=== PATIENT | female | born 1950 | race Hispanic/Latino ===

== ENCOUNTER → 2017-08-25 | Outpatient (CLI) | payer MEDICARE ==
[~2017-08-25] MED LIST: ALEN70TA2 PO; ASPI-1197 PO; ATOR10 PO; BACL20TA PO; CATOPRIL PO; CHOL100046 PO; ERGO400T7 PO; FENO43CA5 PO; FLUO10CA21 PO; HYDR-4064 PO; IMDUR ER PO; INSU100C6 SQ; INSU100V12 SQ; LEVO100T6 PO; METO-296 PO; METO50TA9 PO; PREG150C PO; ROPI1TAB38 PO
== END | disposition home or self-care (01) ==
LOC: RAH 09:53
PROVIDERS: ATTEND Internal Medicine
DX: Z12.31 Encounter for screening mammogram for malignant neoplasm of breast (principal)
CPT/HCPCS: 77067

== ENCOUNTER → 2017-11-25 | Outpatient (CLI) | payer MEDICARE | END | disposition home or self-care (01) | LOC: RAH 08:42 | PROVIDERS: ATTEND Neurological Surgery | DX: M48.061 Spinal stenosis, lumbar region without neurogenic claudication (principal); M48.04 Spinal stenosis, thoracic region; M54.16 Radiculopathy, lumbar region; M54.14 Radiculopathy, thoracic region; M21.372 Foot drop, left foot; M25.78 Osteophyte, vertebrae; N28.1 Cyst of kidney, acquired; R53.1 Weakness | CPT/HCPCS: 72146; 72148 ==

== ENCOUNTER → 2018-04-06 | Outpatient (CLI) | payer MEDICARE | END | disposition home or self-care (01) | LOC: RAH 13:59 | PROVIDERS: ATTEND Neurological Surgery | DX: M54.12 Radiculopathy, cervical region (principal) | CPT/HCPCS: 72040 ==

== ENCOUNTER 2018-04-22 23:05 | Emergency (ER) | payer MEDICARE ==
[2018-04-22 23:29] LABS: BASOPHILS % (AUTO) 2.7 % (0.0-5.0); EOSINOPHILS % (AUTO) 2.7 % (0.0-8.0); HEMATOCRIT 36.4 % (36-48); LYMPHOCYTES % (AUTO) 25.2 % (21.0-51.0); MEAN CORPUSCULAR HEMOGLOBIN 28.4 pg (27.0-33.0); MEAN CORPUSCULAR HGB CONC 33.4 g/dL (32.0-36.0); MONOCYTES % (AUTO) 7.5 % (3.0-13.0); NEUTROPHILS % (AUTO) 61.9 % (40.0-77.0); PLATELET COUNT (AUTO) 264 K/uL (130-400); RED BLOOD CELL COUNT(AUTO) 4.28 MIL/uL (4.00-5.50); RED CELL DISTRIBUTION WIDTH 13.9 % (11.0-15.5); WHITE BLOOD COUNT (AUTO) 8.5 K/uL (4.8-10.8)
[2018-04-22 23:39] LABS: CREATININE 0.9 mg/dL (0.5-1.5)
[2018-04-22 23:44] LABS: ALBUMIN 3.2 g/dL (3.5-5.0); BILIRUBIN,TOTAL 0.7 mg/dL (0.2-1.0); TOTAL PROTEIN, SERUM 6.9 g/dL (6.0-8.3)
[2018-04-22] MEDS ORDERED: LIDOCAINE 5% TOPICAL PATCH TP ONE (23:45)
== END 2018-04-23 00:41 | disposition home or self-care (01) ==
LOC: EDH 23:05
DX: M25.571 Pain in right ankle and joints of right foot (principal); E11.9 Type 2 diabetes mellitus without complications; E07.9 Disorder of thyroid, unspecified; I25.10 Atherosclerotic heart disease of native coronary artery without angina pectoris; Z95.1 Presence of aortocoronary bypass graft; Z79.4 Long term (current) use of insulin
CPT/HCPCS: 36415; 73600; 80053; 85025

== ENCOUNTER → 2018-12-07 | Outpatient (CLI) | payer MEDICARE | END | disposition home or self-care (01) | LOC: RAH 09:40 | PROVIDERS: ATTEND Physical Medicine & Rehabilitation | DX: M47.812 Spondylosis without myelopathy or radiculopathy, cervical region (principal); M85.88 Other specified disorders of bone density and structure, other site; M43.22 Fusion of spine, cervical region | CPT/HCPCS: 72040 ==

== ENCOUNTER → 2018-12-26 | Outpatient (CLI) | payer MEDICARE | END | disposition home or self-care (01) | LOC: RAH 09:52 | PROVIDERS: ATTEND Internal Medicine | DX: S00.93XA Contusion of unspecified part of head, initial encounter (principal); S00.83XA Contusion of other part of head, initial encounter; T14.90XA Injury, unspecified, initial encounter; M79.89 Other specified soft tissue disorders; W19.XXXA Unspecified fall, initial encounter; Y93.89 Activity, other specified; Y92.89 Other specified places as the place of occurrence of the external cause; Y99.8 Other external cause status | CPT/HCPCS: 70450; 70486 ==

== ENCOUNTER → 2019-01-10 | Outpatient (CLI) | payer MEDICARE ==
[~2019-01-10] MED LIST changes: +LIDOCAINE/PRILOCAINE CREAM 5GM TUBE TP ONE
[2019-01-10 10:11] VITALS: BP 95/61
== END | disposition home or self-care (01) ==
LOC: WHH 08:15
PROVIDERS: ATTEND Family Medicine
DX: E11.622 Type 2 diabetes mellitus with other skin ulcer (principal); L89.322 Pressure ulcer of left buttock, stage 2; L98.412 Non-pressure chronic ulcer of buttock with fat layer exposed; I11.0 Hypertensive heart disease with heart failure; I50.9 Heart failure, unspecified; E03.9 Hypothyroidism, unspecified; E78.5 Hyperlipidemia, unspecified; I25.10 Atherosclerotic heart disease of native coronary artery without angina pectoris; F32.9 Major depressive disorder, single episode, unspecified; E66.9 Obesity, unspecified; Z99.3 Dependence on wheelchair; Z95.1 Presence of aortocoronary bypass graft
CPT/HCPCS: 11042; J3490

== ENCOUNTER → 2019-01-17 | Outpatient (CLI) | payer MEDICARE ==
[~2019-01-17] MED LIST changes: +ATOR40TA71 PO; +DULO30CA52 PO; +DULO60CA64 PO; +LEVO100T12 PO; +LIRA0.6P2 SQ; +LISI2.5T2 PO; +MIRA50TA PO; +RANI150T7 PO; +TRAM50TA4 PO
[2019-01-17 11:37] VITALS: BP 76/45
== END | disposition home or self-care (01) ==
LOC: WHH 08:20
PROVIDERS: ATTEND Surgery
DX: E11.622 Type 2 diabetes mellitus with other skin ulcer (principal); L89.322 Pressure ulcer of left buttock, stage 2; L98.411 Non-pressure chronic ulcer of buttock limited to breakdown of skin; I11.0 Hypertensive heart disease with heart failure; I50.9 Heart failure, unspecified; E03.9 Hypothyroidism, unspecified; E78.5 Hyperlipidemia, unspecified; I25.10 Atherosclerotic heart disease of native coronary artery without angina pectoris; F32.9 Major depressive disorder, single episode, unspecified; E66.9 Obesity, unspecified; M79.89 Other specified soft tissue disorders; M85.88 Other specified disorders of bone density and structure, other site; Z99.3 Dependence on wheelchair; Z95.1 Presence of aortocoronary bypass graft
CPT/HCPCS: G0463; J3490

== ENCOUNTER → 2019-01-24 | Outpatient (CLI) | payer MEDICARE ==
[~2019-01-24] MED LIST changes: -ATOR40TA71 PO; -DULO30CA52 PO; -DULO60CA64 PO; -LEVO100T12 PO; -LIRA0.6P2 SQ; -LISI2.5T2 PO; -MIRA50TA PO; -RANI150T7 PO; -TRAM50TA4 PO
[2019-01-24 11:37] VITALS: BP 92/58
== END | disposition home or self-care (01) ==
LOC: WHH 08:30
PROVIDERS: ATTEND Surgery
DX: E11.622 Type 2 diabetes mellitus with other skin ulcer (principal); L89.322 Pressure ulcer of left buttock, stage 2; L98.411 Non-pressure chronic ulcer of buttock limited to breakdown of skin; I11.0 Hypertensive heart disease with heart failure; I50.9 Heart failure, unspecified; E03.9 Hypothyroidism, unspecified; E78.5 Hyperlipidemia, unspecified; I25.10 Atherosclerotic heart disease of native coronary artery without angina pectoris; F32.9 Major depressive disorder, single episode, unspecified; E66.9 Obesity, unspecified; M79.89 Other specified soft tissue disorders; M85.88 Other specified disorders of bone density and structure, other site; Z99.3 Dependence on wheelchair; Z95.1 Presence of aortocoronary bypass graft
CPT/HCPCS: G0463; J3490

== ENCOUNTER → 2019-03-21 | Outpatient (CLI) | payer MEDICARE ==
[~2019-03-21] MED LIST changes: -ALEN70TA2 PO; -ATOR10 PO; +ATOR40TA71 PO; -CATOPRIL PO; -CHOL100046 PO; +DULO30CA52 PO; +DULO60CA64 PO; -FENO43CA5 PO; -FLUO10CA21 PO; -HYDR-4064 PO; -IMDUR ER PO; +LEVO100T12 PO; -LEVO100T6 PO; +LIRA0.6P2 SQ; +LISI2.5T2 PO; +MIRA50TA PO; +RANI150T7 PO; +TRAM50TA4 PO
[2019-03-21 12:12] VITALS: BP 110/56
== END | disposition home or self-care (01) ==
LOC: WHH 09:00
PROVIDERS: ATTEND Family Medicine
DX: E11.622 Type 2 diabetes mellitus with other skin ulcer (principal); L89.322 Pressure ulcer of left buttock, stage 2; L98.411 Non-pressure chronic ulcer of buttock limited to breakdown of skin; E11.22 Type 2 diabetes mellitus with diabetic chronic kidney disease; I13.0 Hypertensive heart and chronic kidney disease with heart failure and stage 1 through stage 4 chronic kidney disease, or unspecified chronic kidney disease; N18.9 Chronic kidney disease, unspecified; I50.9 Heart failure, unspecified; E11.42 Type 2 diabetes mellitus with diabetic polyneuropathy; I25.10 Atherosclerotic heart disease of native coronary artery without angina pectoris; R32 Unspecified urinary incontinence; R15.9 Full incontinence of feces; E66.01 Morbid (severe) obesity due to excess calories; E03.9 Hypothyroidism, unspecified; G82.20 Paraplegia, unspecified; M79.89 Other specified soft tissue disorders; M85.88 Other specified disorders of bone density and structure, other site; F32.9 Major depressive disorder, single episode, unspecified; Z99.3 Dependence on wheelchair; Z90.79 Acquired absence of other genital organ(s); Z90.721 Acquired absence of ovaries, unilateral; Z95.1 Presence of aortocoronary bypass graft; Z74.01 Bed confinement status
CPT/HCPCS: 11042; J3490

== ENCOUNTER → 2019-03-28 | Outpatient (CLI) | payer MEDICARE ==
[~2019-03-28] MED LIST changes: -LIDOCAINE/PRILOCAINE CREAM 5GM TUBE TP ONE
[2019-03-28 10:43] VITALS: BP 124/75
== END | disposition home or self-care (01) ==
LOC: WHH 08:30
PROVIDERS: ATTEND Family Medicine
DX: E11.622 Type 2 diabetes mellitus with other skin ulcer (principal); L89.152 Pressure ulcer of sacral region, stage 2; L98.421 Non-pressure chronic ulcer of back limited to breakdown of skin; L89.329 Pressure ulcer of left buttock, unspecified stage; L98.412 Non-pressure chronic ulcer of buttock with fat layer exposed; G82.20 Paraplegia, unspecified; E11.22 Type 2 diabetes mellitus with diabetic chronic kidney disease; I13.0 Hypertensive heart and chronic kidney disease with heart failure and stage 1 through stage 4 chronic kidney disease, or unspecified chronic kidney disease; N18.9 Chronic kidney disease, unspecified; I50.9 Heart failure, unspecified; E11.42 Type 2 diabetes mellitus with diabetic polyneuropathy; I25.10 Atherosclerotic heart disease of native coronary artery without angina pectoris; R15.9 Full incontinence of feces; R32 Unspecified urinary incontinence; E03.9 Hypothyroidism, unspecified; E66.01 Morbid (severe) obesity due to excess calories; M85.9 Disorder of bone density and structure, unspecified; F32.9 Major depressive disorder, single episode, unspecified; Z79.4 Long term (current) use of insulin; Z90.721 Acquired absence of ovaries, unilateral; Z99.3 Dependence on wheelchair; Z95.1 Presence of aortocoronary bypass graft; Z74.01 Bed confinement status
CPT/HCPCS: 11042

== ENCOUNTER → 2019-04-11 | Outpatient (CLI) | payer MEDICARE ==
[~2019-04-11] MED LIST changes: +LIDOCAINE/PRILOCAINE CREAM 5GM TUBE TP ONE
[2019-04-11 12:11] VITALS: BP 117/64
== END | disposition home or self-care (01) ==
LOC: WHH 08:30
PROVIDERS: ATTEND Family Medicine
DX: E11.622 Type 2 diabetes mellitus with other skin ulcer (principal); L89.312 Pressure ulcer of right buttock, stage 2; L98.411 Non-pressure chronic ulcer of buttock limited to breakdown of skin; G82.20 Paraplegia, unspecified; E11.22 Type 2 diabetes mellitus with diabetic chronic kidney disease; I13.0 Hypertensive heart and chronic kidney disease with heart failure and stage 1 through stage 4 chronic kidney disease, or unspecified chronic kidney disease; N18.9 Chronic kidney disease, unspecified; I50.9 Heart failure, unspecified; E11.42 Type 2 diabetes mellitus with diabetic polyneuropathy; I25.10 Atherosclerotic heart disease of native coronary artery without angina pectoris; R15.9 Full incontinence of feces; R32 Unspecified urinary incontinence; E03.9 Hypothyroidism, unspecified; E66.01 Morbid (severe) obesity due to excess calories; M85.9 Disorder of bone density and structure, unspecified; F32.9 Major depressive disorder, single episode, unspecified; Z79.4 Long term (current) use of insulin; Z90.721 Acquired absence of ovaries, unilateral; Z99.3 Dependence on wheelchair; Z95.1 Presence of aortocoronary bypass graft; Z74.01 Bed confinement status
CPT/HCPCS: G0463; J3490; 11042

== ENCOUNTER → 2019-04-25 | Outpatient (CLI) | payer MEDICARE ==
[~2019-04-25] MED LIST changes: -LIDOCAINE/PRILOCAINE CREAM 5GM TUBE TP ONE
[2019-04-25 09:04] VITALS: BP 99/57
== END | disposition home or self-care (01) ==
LOC: WHH 08:30
PROVIDERS: ATTEND Family Medicine
DX: E11.622 Type 2 diabetes mellitus with other skin ulcer (principal); L89.322 Pressure ulcer of left buttock, stage 2; L98.411 Non-pressure chronic ulcer of buttock limited to breakdown of skin; G82.20 Paraplegia, unspecified; E11.22 Type 2 diabetes mellitus with diabetic chronic kidney disease; I13.0 Hypertensive heart and chronic kidney disease with heart failure and stage 1 through stage 4 chronic kidney disease, or unspecified chronic kidney disease; N18.9 Chronic kidney disease, unspecified; I50.9 Heart failure, unspecified; E11.42 Type 2 diabetes mellitus with diabetic polyneuropathy; I25.10 Atherosclerotic heart disease of native coronary artery without angina pectoris; R15.9 Full incontinence of feces; R32 Unspecified urinary incontinence; E03.9 Hypothyroidism, unspecified; E66.01 Morbid (severe) obesity due to excess calories; M85.9 Disorder of bone density and structure, unspecified; F32.9 Major depressive disorder, single episode, unspecified; Z79.4 Long term (current) use of insulin; Z90.721 Acquired absence of ovaries, unilateral; Z99.3 Dependence on wheelchair; Z95.1 Presence of aortocoronary bypass graft; Z74.01 Bed confinement status
CPT/HCPCS: G0463

== ENCOUNTER → 2019-05-09 | Outpatient (CLI) | payer MEDICARE ==
[2019-05-09 12:01] VITALS: BP 110/62
== END | disposition home or self-care (01) ==
LOC: WHH 08:25
PROVIDERS: ATTEND Family Medicine
DX: E11.622 Type 2 diabetes mellitus with other skin ulcer (principal); L89.322 Pressure ulcer of left buttock, stage 2; L98.418 Non-pressure chronic ulcer of buttock with other specified severity; G82.20 Paraplegia, unspecified; E11.22 Type 2 diabetes mellitus with diabetic chronic kidney disease; I13.0 Hypertensive heart and chronic kidney disease with heart failure and stage 1 through stage 4 chronic kidney disease, or unspecified chronic kidney disease; N18.9 Chronic kidney disease, unspecified; I50.9 Heart failure, unspecified; E11.42 Type 2 diabetes mellitus with diabetic polyneuropathy; I25.10 Atherosclerotic heart disease of native coronary artery without angina pectoris; R15.9 Full incontinence of feces; R32 Unspecified urinary incontinence; E03.9 Hypothyroidism, unspecified; E66.01 Morbid (severe) obesity due to excess calories; M85.9 Disorder of bone density and structure, unspecified; F32.9 Major depressive disorder, single episode, unspecified; Z79.4 Long term (current) use of insulin; Z90.721 Acquired absence of ovaries, unilateral; Z99.3 Dependence on wheelchair; Z95.1 Presence of aortocoronary bypass graft; Z74.01 Bed confinement status
CPT/HCPCS: G0463

== ENCOUNTER 2019-05-30 08:30 | Outpatient (CLI) | payer MEDICARE ==
[2019-05-30 10:25] VITALS: BP 130/65
== END 2019-05-30 10:58 | disposition home or self-care (01) ==
LOC: WHH 08:30
PROVIDERS: ATTEND Family Medicine
DX: E11.622 Type 2 diabetes mellitus with other skin ulcer (principal); L89.322 Pressure ulcer of left buttock, stage 2; L98.418 Non-pressure chronic ulcer of buttock with other specified severity; E11.22 Type 2 diabetes mellitus with diabetic chronic kidney disease; G82.20 Paraplegia, unspecified; I13.0 Hypertensive heart and chronic kidney disease with heart failure and stage 1 through stage 4 chronic kidney disease, or unspecified chronic kidney disease; N18.9 Chronic kidney disease, unspecified; I50.9 Heart failure, unspecified; E11.42 Type 2 diabetes mellitus with diabetic polyneuropathy; I25.10 Atherosclerotic heart disease of native coronary artery without angina pectoris; R15.9 Full incontinence of feces; R32 Unspecified urinary incontinence; E03.9 Hypothyroidism, unspecified; E66.01 Morbid (severe) obesity due to excess calories; M85.9 Disorder of bone density and structure, unspecified; F32.9 Major depressive disorder, single episode, unspecified; Z79.4 Long term (current) use of insulin; Z90.721 Acquired absence of ovaries, unilateral; Z99.3 Dependence on wheelchair; Z95.1 Presence of aortocoronary bypass graft; Z79.01 Long term (current) use of anticoagulants
CPT/HCPCS: G0463

== ENCOUNTER → 2019-07-10 | Outpatient (CLI) | payer MEDICARE ==
[~2019-07-10] MED LIST changes: +LIDOCAINE/PRILOCAINE CREAM 5GM TUBE TP ONE
[2019-07-10 13:14] VITALS: BP 103/63
== END | disposition home or self-care (01) ==
LOC: WHH 08:25
PROVIDERS: ATTEND Family Medicine
DX: E11.622 Type 2 diabetes mellitus with other skin ulcer (principal); L89.323 Pressure ulcer of left buttock, stage 3; L98.412 Non-pressure chronic ulcer of buttock with fat layer exposed; E11.22 Type 2 diabetes mellitus with diabetic chronic kidney disease; I13.0 Hypertensive heart and chronic kidney disease with heart failure and stage 1 through stage 4 chronic kidney disease, or unspecified chronic kidney disease; N18.9 Chronic kidney disease, unspecified; I50.9 Heart failure, unspecified; E11.42 Type 2 diabetes mellitus with diabetic polyneuropathy; I25.10 Atherosclerotic heart disease of native coronary artery without angina pectoris; E03.9 Hypothyroidism, unspecified; E66.9 Obesity, unspecified; M85.9 Disorder of bone density and structure, unspecified; G82.20 Paraplegia, unspecified; R15.9 Full incontinence of feces; R32 Unspecified urinary incontinence; E78.5 Hyperlipidemia, unspecified; F32.9 Major depressive disorder, single episode, unspecified; Z95.1 Presence of aortocoronary bypass graft; Z79.4 Long term (current) use of insulin; Z79.01 Long term (current) use of anticoagulants; Z90.721 Acquired absence of ovaries, unilateral; Z99.3 Dependence on wheelchair; Z90.89 Acquired absence of other organs
CPT/HCPCS: 11042; A6021; J3490

== ENCOUNTER → 2019-07-17 | Outpatient (CLI) | payer MEDICARE ==
[2019-07-17 14:37] VITALS: BP 94/50
== END | disposition home or self-care (01) ==
LOC: WHH 08:30
PROVIDERS: ATTEND Family Medicine
DX: E11.622 Type 2 diabetes mellitus with other skin ulcer (principal); L89.323 Pressure ulcer of left buttock, stage 3; L98.412 Non-pressure chronic ulcer of buttock with fat layer exposed; E11.22 Type 2 diabetes mellitus with diabetic chronic kidney disease; I13.0 Hypertensive heart and chronic kidney disease with heart failure and stage 1 through stage 4 chronic kidney disease, or unspecified chronic kidney disease; N18.9 Chronic kidney disease, unspecified; I50.9 Heart failure, unspecified; E11.42 Type 2 diabetes mellitus with diabetic polyneuropathy; E66.01 Morbid (severe) obesity due to excess calories; E03.9 Hypothyroidism, unspecified; I25.10 Atherosclerotic heart disease of native coronary artery without angina pectoris; M85.9 Disorder of bone density and structure, unspecified; E78.5 Hyperlipidemia, unspecified; L84 Corns and callosities; G82.20 Paraplegia, unspecified; R15.9 Full incontinence of feces; R32 Unspecified urinary incontinence; F32.9 Major depressive disorder, single episode, unspecified; Z95.1 Presence of aortocoronary bypass graft; Z79.4 Long term (current) use of insulin; Z79.01 Long term (current) use of anticoagulants; Z90.89 Acquired absence of other organs; Z90.721 Acquired absence of ovaries, unilateral; Z99.3 Dependence on wheelchair
CPT/HCPCS: 11042; J3490

== ENCOUNTER → 2019-07-19 | Outpatient (CLI) | payer MEDICARE ==
[~2019-07-19] MED LIST changes: -LIDOCAINE/PRILOCAINE CREAM 5GM TUBE TP ONE
== END | disposition home or self-care (01) ==
LOC: RAH 14:00
PROVIDERS: ATTEND Internal Medicine
DX: R22.1 Localized swelling, mass and lump, neck (principal)
CPT/HCPCS: 76536

== ENCOUNTER → 2019-07-24 | Outpatient (CLI) | payer MEDICARE ==
[2019-07-24 12:23] VITALS: BP 84/50
== END | disposition home or self-care (01) ==
LOC: WHH 08:30
PROVIDERS: ATTEND Family Medicine
DX: E11.622 Type 2 diabetes mellitus with other skin ulcer (principal); L89.323 Pressure ulcer of left buttock, stage 3; L98.412 Non-pressure chronic ulcer of buttock with fat layer exposed; E11.22 Type 2 diabetes mellitus with diabetic chronic kidney disease; I13.0 Hypertensive heart and chronic kidney disease with heart failure and stage 1 through stage 4 chronic kidney disease, or unspecified chronic kidney disease; N18.9 Chronic kidney disease, unspecified; I50.9 Heart failure, unspecified; E11.42 Type 2 diabetes mellitus with diabetic polyneuropathy; E78.5 Hyperlipidemia, unspecified; E03.9 Hypothyroidism, unspecified; E66.01 Morbid (severe) obesity due to excess calories; I25.10 Atherosclerotic heart disease of native coronary artery without angina pectoris; L84 Corns and callosities; M85.9 Disorder of bone density and structure, unspecified; G82.20 Paraplegia, unspecified; R15.9 Full incontinence of feces; R32 Unspecified urinary incontinence; F32.9 Major depressive disorder, single episode, unspecified; Z99.3 Dependence on wheelchair; Z95.1 Presence of aortocoronary bypass graft; Z79.01 Long term (current) use of anticoagulants; Z79.4 Long term (current) use of insulin; Z90.89 Acquired absence of other organs; Z90.721 Acquired absence of ovaries, unilateral
CPT/HCPCS: 11042

== ENCOUNTER → 2019-07-31 | Outpatient (CLI) | payer MEDICARE ==
[~2019-07-31] MED LIST changes: +LIDOCAINE/PRILOCAINE CREAM 5GM TUBE TP ONE
[2019-07-31 11:29] VITALS: BP 97/49
== END | disposition home or self-care (01) ==
LOC: WHH 08:30
PROVIDERS: ATTEND Family Medicine
DX: E11.622 Type 2 diabetes mellitus with other skin ulcer (principal); L89.323 Pressure ulcer of left buttock, stage 3; L98.412 Non-pressure chronic ulcer of buttock with fat layer exposed; L84 Corns and callosities; E11.22 Type 2 diabetes mellitus with diabetic chronic kidney disease; I13.0 Hypertensive heart and chronic kidney disease with heart failure and stage 1 through stage 4 chronic kidney disease, or unspecified chronic kidney disease; N18.9 Chronic kidney disease, unspecified; I50.9 Heart failure, unspecified; E11.42 Type 2 diabetes mellitus with diabetic polyneuropathy; I25.10 Atherosclerotic heart disease of native coronary artery without angina pectoris; E78.5 Hyperlipidemia, unspecified; E03.9 Hypothyroidism, unspecified; E66.01 Morbid (severe) obesity due to excess calories; M85.9 Disorder of bone density and structure, unspecified; G82.20 Paraplegia, unspecified; R15.9 Full incontinence of feces; R32 Unspecified urinary incontinence; F32.9 Major depressive disorder, single episode, unspecified; Z95.1 Presence of aortocoronary bypass graft; Z99.3 Dependence on wheelchair; Z79.01 Long term (current) use of anticoagulants; Z79.4 Long term (current) use of insulin; Z90.89 Acquired absence of other organs; Z90.721 Acquired absence of ovaries, unilateral
CPT/HCPCS: 11042; J3490

== ENCOUNTER → 2019-08-14 | Outpatient (CLI) | payer MEDICARE ==
[2019-08-14 13:51] VITALS: BP 97/49
== END | disposition home or self-care (01) ==
LOC: WHH 08:30
PROVIDERS: ATTEND Family Medicine
DX: E11.622 Type 2 diabetes mellitus with other skin ulcer (principal); L89.323 Pressure ulcer of left buttock, stage 3; L98.412 Non-pressure chronic ulcer of buttock with fat layer exposed; L84 Corns and callosities; E11.42 Type 2 diabetes mellitus with diabetic polyneuropathy; I13.0 Hypertensive heart and chronic kidney disease with heart failure and stage 1 through stage 4 chronic kidney disease, or unspecified chronic kidney disease; N18.9 Chronic kidney disease, unspecified; I50.9 Heart failure, unspecified; I25.10 Atherosclerotic heart disease of native coronary artery without angina pectoris; E78.5 Hyperlipidemia, unspecified; E03.9 Hypothyroidism, unspecified; E66.01 Morbid (severe) obesity due to excess calories; M85.9 Disorder of bone density and structure, unspecified; G82.20 Paraplegia, unspecified; R32 Unspecified urinary incontinence; F32.9 Major depressive disorder, single episode, unspecified; Z95.1 Presence of aortocoronary bypass graft; Z99.3 Dependence on wheelchair; Z79.01 Long term (current) use of anticoagulants; Z79.4 Long term (current) use of insulin; Z90.89 Acquired absence of other organs; Z90.721 Acquired absence of ovaries, unilateral
CPT/HCPCS: 11042; J3490

== ENCOUNTER → 2019-08-28 | Outpatient (CLI) | payer MEDICARE ==
[2019-08-28 15:02] VITALS: BP 98/48
== END | disposition home or self-care (01) ==
LOC: WHH 08:30
PROVIDERS: ATTEND Family Medicine
DX: E11.622 Type 2 diabetes mellitus with other skin ulcer (principal); L89.323 Pressure ulcer of left buttock, stage 3; L98.412 Non-pressure chronic ulcer of buttock with fat layer exposed; L84 Corns and callosities; E11.42 Type 2 diabetes mellitus with diabetic polyneuropathy; I13.0 Hypertensive heart and chronic kidney disease with heart failure and stage 1 through stage 4 chronic kidney disease, or unspecified chronic kidney disease; N18.9 Chronic kidney disease, unspecified; I50.9 Heart failure, unspecified; I25.10 Atherosclerotic heart disease of native coronary artery without angina pectoris; E78.5 Hyperlipidemia, unspecified; E03.9 Hypothyroidism, unspecified; E66.01 Morbid (severe) obesity due to excess calories; M85.9 Disorder of bone density and structure, unspecified; G82.20 Paraplegia, unspecified; R32 Unspecified urinary incontinence; F32.9 Major depressive disorder, single episode, unspecified; Z95.1 Presence of aortocoronary bypass graft; Z99.3 Dependence on wheelchair; Z79.01 Long term (current) use of anticoagulants; Z79.4 Long term (current) use of insulin; Z90.89 Acquired absence of other organs; Z90.721 Acquired absence of ovaries, unilateral
CPT/HCPCS: 11042; J3490

== ENCOUNTER → 2019-09-11 | Outpatient (CLI) | payer MEDICARE ==
[2019-09-11 13:47] VITALS: BP 103/54
== END | disposition home or self-care (01) ==
LOC: WHH 08:30
PROVIDERS: ATTEND Family Medicine
DX: E11.622 Type 2 diabetes mellitus with other skin ulcer (principal); L89.323 Pressure ulcer of left buttock, stage 3; L98.412 Non-pressure chronic ulcer of buttock with fat layer exposed; L84 Corns and callosities; E11.42 Type 2 diabetes mellitus with diabetic polyneuropathy; E11.22 Type 2 diabetes mellitus with diabetic chronic kidney disease; I13.0 Hypertensive heart and chronic kidney disease with heart failure and stage 1 through stage 4 chronic kidney disease, or unspecified chronic kidney disease; N18.9 Chronic kidney disease, unspecified; I50.9 Heart failure, unspecified; I25.10 Atherosclerotic heart disease of native coronary artery without angina pectoris; E03.9 Hypothyroidism, unspecified; E78.5 Hyperlipidemia, unspecified; E66.01 Morbid (severe) obesity due to excess calories; M85.9 Disorder of bone density and structure, unspecified; G82.20 Paraplegia, unspecified; R32 Unspecified urinary incontinence; F32.9 Major depressive disorder, single episode, unspecified; Z95.1 Presence of aortocoronary bypass graft; Z99.3 Dependence on wheelchair; Z79.01 Long term (current) use of anticoagulants; Z79.4 Long term (current) use of insulin; Z90.89 Acquired absence of other organs; Z90.721 Acquired absence of ovaries, unilateral
CPT/HCPCS: 11042; J3490

== ENCOUNTER → 2019-10-16 | Outpatient (CLI) | payer MEDICARE ==
[~2019-10-16] MED LIST changes: -LIDOCAINE/PRILOCAINE CREAM 5GM TUBE TP ONE
[2019-10-16 13:43] VITALS: BP 109/56
== END | disposition home or self-care (01) ==
LOC: WHH 08:30
PROVIDERS: ATTEND Family Medicine
DX: E11.622 Type 2 diabetes mellitus with other skin ulcer (principal); L89.323 Pressure ulcer of left buttock, stage 3; L98.418 Non-pressure chronic ulcer of buttock with other specified severity; L84 Corns and callosities; E11.22 Type 2 diabetes mellitus with diabetic chronic kidney disease; I13.0 Hypertensive heart and chronic kidney disease with heart failure and stage 1 through stage 4 chronic kidney disease, or unspecified chronic kidney disease; N18.9 Chronic kidney disease, unspecified; I50.9 Heart failure, unspecified; E11.42 Type 2 diabetes mellitus with diabetic polyneuropathy; I25.10 Atherosclerotic heart disease of native coronary artery without angina pectoris; E78.5 Hyperlipidemia, unspecified; E03.9 Hypothyroidism, unspecified; E66.01 Morbid (severe) obesity due to excess calories; F32.9 Major depressive disorder, single episode, unspecified; Z95.1 Presence of aortocoronary bypass graft; Z90.89 Acquired absence of other organs; Z90.721 Acquired absence of ovaries, unilateral; Z79.01 Long term (current) use of anticoagulants; Z79.4 Long term (current) use of insulin
CPT/HCPCS: G0463

== ENCOUNTER → 2019-11-20 | Outpatient (CLI) | payer MEDICARE ==
[2019-11-20 13:01] VITALS: BP 111/57
== END | disposition home or self-care (01) ==
LOC: WHH 08:30
PROVIDERS: ATTEND Family Medicine
DX: E11.622 Type 2 diabetes mellitus with other skin ulcer (principal); L89.323 Pressure ulcer of left buttock, stage 3; L98.412 Non-pressure chronic ulcer of buttock with fat layer exposed; L84 Corns and callosities; E11.22 Type 2 diabetes mellitus with diabetic chronic kidney disease; I13.0 Hypertensive heart and chronic kidney disease with heart failure and stage 1 through stage 4 chronic kidney disease, or unspecified chronic kidney disease; N18.9 Chronic kidney disease, unspecified; I50.9 Heart failure, unspecified; E11.42 Type 2 diabetes mellitus with diabetic polyneuropathy; I25.10 Atherosclerotic heart disease of native coronary artery without angina pectoris; E78.5 Hyperlipidemia, unspecified; E03.9 Hypothyroidism, unspecified; E66.01 Morbid (severe) obesity due to excess calories; G82.20 Paraplegia, unspecified; F32.9 Major depressive disorder, single episode, unspecified; Z95.1 Presence of aortocoronary bypass graft; Z90.721 Acquired absence of ovaries, unilateral; Z79.01 Long term (current) use of anticoagulants; Z79.4 Long term (current) use of insulin
CPT/HCPCS: 11042

== ENCOUNTER → 2019-12-11 | Outpatient (CLI) | payer MEDICARE | END | disposition home or self-care (01) | LOC: WHH 08:30 | PROVIDERS: ATTEND Family Medicine | DX: E11.622 Type 2 diabetes mellitus with other skin ulcer (principal); L89.323 Pressure ulcer of left buttock, stage 3; L98.411 Non-pressure chronic ulcer of buttock limited to breakdown of skin; L84 Corns and callosities; E11.22 Type 2 diabetes mellitus with diabetic chronic kidney disease; I13.0 Hypertensive heart and chronic kidney disease with heart failure and stage 1 through stage 4 chronic kidney disease, or unspecified chronic kidney disease; N18.9 Chronic kidney disease, unspecified; I50.22 Chronic systolic (congestive) heart failure; E11.42 Type 2 diabetes mellitus with diabetic polyneuropathy; E66.01 Morbid (severe) obesity due to excess calories; I25.10 Atherosclerotic heart disease of native coronary artery without angina pectoris; E78.5 Hyperlipidemia, unspecified; G82.20 Paraplegia, unspecified; M19.90 Unspecified osteoarthritis, unspecified site; E03.9 Hypothyroidism, unspecified; F32.9 Major depressive disorder, single episode, unspecified; Z79.01 Long term (current) use of anticoagulants; Z79.4 Long term (current) use of insulin; Z95.1 Presence of aortocoronary bypass graft; Z68.38 Body mass index [BMI] 38.0-38.9, adult; Z90.721 Acquired absence of ovaries, unilateral ==

== ENCOUNTER 2020-01-08 08:30 | Outpatient (CLI) | payer MEDICARE | END 2020-01-08 11:57 | disposition home or self-care (01) | LOC: WHH 08:30 | PROVIDERS: ATTEND Family Medicine | DX: E11.622 Type 2 diabetes mellitus with other skin ulcer (principal); L89.329 Pressure ulcer of left buttock, unspecified stage; L98.418 Non-pressure chronic ulcer of buttock with other specified severity; L84 Corns and callosities; E11.22 Type 2 diabetes mellitus with diabetic chronic kidney disease; I13.0 Hypertensive heart and chronic kidney disease with heart failure and stage 1 through stage 4 chronic kidney disease, or unspecified chronic kidney disease; N18.9 Chronic kidney disease, unspecified; I50.22 Chronic systolic (congestive) heart failure; E11.42 Type 2 diabetes mellitus with diabetic polyneuropathy; E66.01 Morbid (severe) obesity due to excess calories; I25.10 Atherosclerotic heart disease of native coronary artery without angina pectoris; E78.5 Hyperlipidemia, unspecified; G82.20 Paraplegia, unspecified; M19.90 Unspecified osteoarthritis, unspecified site; E03.9 Hypothyroidism, unspecified; F32.9 Major depressive disorder, single episode, unspecified; Z79.01 Long term (current) use of anticoagulants; Z79.4 Long term (current) use of insulin; Z95.1 Presence of aortocoronary bypass graft; Z68.38 Body mass index [BMI] 38.0-38.9, adult; Z90.721 Acquired absence of ovaries, unilateral | CPT/HCPCS: G0463 ==

== ENCOUNTER → 2020-01-09 | Outpatient (CLI) | payer MEDICARE | END | disposition home or self-care (01) | LOC: RAH 07:32 | PROVIDERS: ATTEND Physical Medicine & Rehabilitation | DX: M79.671 Pain in right foot (principal) | CPT/HCPCS: 73718 ==

== ENCOUNTER → 2020-01-31 | Outpatient (CLI) | payer MEDICARE | END | disposition home or self-care (01) | LOC: RAH 08:34 | PROVIDERS: ATTEND Internal Medicine | DX: Z12.31 Encounter for screening mammogram for malignant neoplasm of breast (principal) | CPT/HCPCS: 77067 ==

== ENCOUNTER → 2020-05-28 | Outpatient (CLI) | payer MEDICARE | END | disposition home or self-care (01) | LOC: WHH 08:35 | PROVIDERS: ATTEND Family Medicine | DX: E11.622 Type 2 diabetes mellitus with other skin ulcer (principal); L89.329 Pressure ulcer of left buttock, unspecified stage; L98.411 Non-pressure chronic ulcer of buttock limited to breakdown of skin; L84 Corns and callosities; E11.22 Type 2 diabetes mellitus with diabetic chronic kidney disease; I13.0 Hypertensive heart and chronic kidney disease with heart failure and stage 1 through stage 4 chronic kidney disease, or unspecified chronic kidney disease; N18.9 Chronic kidney disease, unspecified; I50.22 Chronic systolic (congestive) heart failure; E11.42 Type 2 diabetes mellitus with diabetic polyneuropathy; E66.01 Morbid (severe) obesity due to excess calories; I25.10 Atherosclerotic heart disease of native coronary artery without angina pectoris; E78.5 Hyperlipidemia, unspecified; G82.20 Paraplegia, unspecified; M19.90 Unspecified osteoarthritis, unspecified site; E03.9 Hypothyroidism, unspecified; F32.9 Major depressive disorder, single episode, unspecified; Z79.01 Long term (current) use of anticoagulants; Z79.4 Long term (current) use of insulin; Z95.1 Presence of aortocoronary bypass graft; Z90.721 Acquired absence of ovaries, unilateral; Z68.36 Body mass index [BMI] 36.0-36.9, adult | CPT/HCPCS: G0463 ==

== ENCOUNTER → 2021-05-12 | Outpatient (CLI) | payer OTHER, MEDICARE ==
[~2021-05-12] MED LIST changes: +LISI2.5T13 PO; -LISI2.5T2 PO; +ONDA4TAB10 PO
== END | disposition home or self-care (01) ==
LOC: SHCH 08:51
PROVIDERS: ATTEND Internal Medicine Cardiovascular Disease
DX: I73.9 Peripheral vascular disease, unspecified (principal); R60.9 Edema, unspecified
CPT/HCPCS: 93925; 93970

== ENCOUNTER → 2021-06-22 | Emergency (ER) | payer MEDICARE, OTHER ==
[~2021-06-22] VITALS: Ht 160 cm; Wt 93.0 kg
[~2021-06-22] MED LIST changes: +0.9%NACL 1000ML 1,000 ML IV ONE
[2021-06-22 17:33] LABS: BASOPHILS % (AUTO) 0.1 % (0.0-5.0); HEMATOCRIT 35.8 % (36-48); LYMPHOCYTES % (AUTO) 4.4 % (21.0-51.0); MEAN CORPUSCULAR HEMOGLOBIN 27.5 pg (27.0-33.0); MEAN CORPUSCULAR HGB CONC 32.1 g/dL (32.0-36.0); MEAN CORPUSCULAR VOLUME 85.6 fL (79-99); MONOCYTES % (AUTO) 3.2 % (3.0-13.0); NEUTROPHILS % (AUTO) 91.6 % (40.0-77.0); PLATELET COUNT (AUTO) 221 K/uL (130-400); RED BLOOD CELL COUNT(AUTO) 4.18 MIL/uL (4.00-5.50); RED CELL DISTRIBUTION WIDTH 13.5 % (11.0-15.5); WHITE BLOOD COUNT (AUTO) 8.3 K/uL (4.8-10.8)
[2021-06-22 17:52] LABS: CREATININE 1.1 mg/dL (0.5-1.5); POTASSIUM 4.4 mmol/L (3.5-5.1)
[2021-06-22 18:01] LABS: ALBUMIN 3.5 g/dL (3.5-5.0); BILIRUBIN,TOTAL 1.4 mg/dL (0.2-1.0); TOTAL PROTEIN, SERUM 7.1 g/dL (6.0-8.3)
[2021-06-22 18:15] VITALS: BP 126/61
[2021-06-22 18:16] LABS: APPEARANCE,URINE Clear (CLEAR); BILIRUBIN,URINE Negative (NEGATIVE); COLOR,URINE Yellow (YELLOW); GLUCOSE, URINE (UA) 500 mg/dL (NEGATIVE); KETONES,URINE Negative (NEGATIVE); LEUKOCYTE ESTERASE ,URINE Negative (NEGATIVE); NITRATE,URINE Negative (NEGATIVE); OCCULT BLOOD,URINE Negative (NEGATIVE); PH,URINE 5.5 (5.0-8.0); PROTEIN,URINE Trace mg/dL (NEGATIVE); UROBILINOGEN,URINE 0.2 mg/dL (0.2-1.0)
[2021-06-22 18:25] LABS: BACTERIA,URINE Rare /HPF (None Seen); RBC,URINE 0-1 /HPF (0-1); SQUAMOUS EPITHELIAL CELL,UR Rare /HPF (0-2); WBC,URINE 0-1 /HPF (0-1)
== END ==
LOC: EDH 16:42
DX: E86.9 Volume depletion, unspecified (principal); R11.2 Nausea with vomiting, unspecified; R19.7 Diarrhea, unspecified; I11.0 Hypertensive heart disease with heart failure; I50.9 Heart failure, unspecified; I25.10 Atherosclerotic heart disease of native coronary artery without angina pectoris; E11.9 Type 2 diabetes mellitus without complications; K21.9 Gastro-esophageal reflux disease without esophagitis; Z20.822 Contact with and (suspected) exposure to COVID-19; Z90.710 Acquired absence of both cervix and uterus; Z90.49 Acquired absence of other specified parts of digestive tract; Z95.1 Presence of aortocoronary bypass graft; Z98.890 Other specified postprocedural states; Z79.4 Long term (current) use of insulin; Z79.82 Long term (current) use of aspirin; Z79.899 Other long term (current) drug therapy
CPT/HCPCS: 36415; 71045; 74176; 80053; 81001; 83690; 84484; 85025; 87635; 87804 ×2; 93005; 99285; C9803

== ENCOUNTER → 2021-09-11 | Outpatient (CLI) | payer OTHER ==
[~2021-09-11] MED LIST changes: -0.9%NACL 1000ML 1,000 ML IV ONE; +LIDOCAINE HCL 4% LTA SOL 4 ML VIAL TP ONE
== END | disposition home or self-care (01) ==
LOC: WHH 10:38
PROVIDERS: ATTEND Family Medicine
DX: L89.322 Pressure ulcer of left buttock, stage 2 (principal); L89.312 Pressure ulcer of right buttock, stage 2; E11.628 Type 2 diabetes mellitus with other skin complications; L84 Corns and callosities; E11.22 Type 2 diabetes mellitus with diabetic chronic kidney disease; I13.0 Hypertensive heart and chronic kidney disease with heart failure and stage 1 through stage 4 chronic kidney disease, or unspecified chronic kidney disease; N18.9 Chronic kidney disease, unspecified; I50.22 Chronic systolic (congestive) heart failure; E11.42 Type 2 diabetes mellitus with diabetic polyneuropathy; E66.01 Morbid (severe) obesity due to excess calories; I25.10 Atherosclerotic heart disease of native coronary artery without angina pectoris; E78.5 Hyperlipidemia, unspecified; G82.20 Paraplegia, unspecified; M19.90 Unspecified osteoarthritis, unspecified site; E03.9 Hypothyroidism, unspecified; F32.9 Major depressive disorder, single episode, unspecified; Z79.01 Long term (current) use of anticoagulants; Z79.4 Long term (current) use of insulin; Z95.1 Presence of aortocoronary bypass graft; Z90.721 Acquired absence of ovaries, unilateral; Z68.36 Body mass index [BMI] 36.0-36.9, adult
CPT/HCPCS: 11042

== ENCOUNTER → 2021-10-16 | Outpatient (CLI) | payer OTHER ==
[~2021-10-16] MED LIST changes: -LIDOCAINE HCL 4% LTA SOL 4 ML VIAL TP ONE
== END | disposition home or self-care (01) ==
LOC: WHH 10:05
PROVIDERS: ATTEND Family Medicine
DX: L89.312 Pressure ulcer of right buttock, stage 2 (principal); E11.628 Type 2 diabetes mellitus with other skin complications; E11.42 Type 2 diabetes mellitus with diabetic polyneuropathy; E11.22 Type 2 diabetes mellitus with diabetic chronic kidney disease; I13.0 Hypertensive heart and chronic kidney disease with heart failure and stage 1 through stage 4 chronic kidney disease, or unspecified chronic kidney disease; N18.9 Chronic kidney disease, unspecified; I50.22 Chronic systolic (congestive) heart failure; E78.5 Hyperlipidemia, unspecified; E03.9 Hypothyroidism, unspecified; G83.9 Paralytic syndrome, unspecified; I25.10 Atherosclerotic heart disease of native coronary artery without angina pectoris; M62.3 Immobility syndrome (paraplegic); M19.90 Unspecified osteoarthritis, unspecified site; F32.9 Major depressive disorder, single episode, unspecified; E66.01 Morbid (severe) obesity due to excess calories; Z68.36 Body mass index [BMI] 36.0-36.9, adult; Z90.721 Acquired absence of ovaries, unilateral; Z90.710 Acquired absence of both cervix and uterus; Z90.49 Acquired absence of other specified parts of digestive tract; Z95.1 Presence of aortocoronary bypass graft; Z98.890 Other specified postprocedural states; Z99.3 Dependence on wheelchair; Z79.4 Long term (current) use of insulin; Z79.01 Long term (current) use of anticoagulants
CPT/HCPCS: G0463

== ENCOUNTER → 2021-11-24 | Outpatient (CLI) | payer OTHER ==
[~2021-11-24] MED LIST changes: +LIDOCAINE HCL 4% LTA SOL 4 ML VIAL TP ONE
== END | disposition home or self-care (01) ==
LOC: WHH 11:01
PROVIDERS: ATTEND Family Medicine
DX: L89.312 Pressure ulcer of right buttock, stage 2 (principal); E11.628 Type 2 diabetes mellitus with other skin complications; E11.42 Type 2 diabetes mellitus with diabetic polyneuropathy; E11.22 Type 2 diabetes mellitus with diabetic chronic kidney disease; I13.0 Hypertensive heart and chronic kidney disease with heart failure and stage 1 through stage 4 chronic kidney disease, or unspecified chronic kidney disease; N18.9 Chronic kidney disease, unspecified; I50.22 Chronic systolic (congestive) heart failure; G83.9 Paralytic syndrome, unspecified; E78.5 Hyperlipidemia, unspecified; E03.9 Hypothyroidism, unspecified; E66.01 Morbid (severe) obesity due to excess calories; I25.10 Atherosclerotic heart disease of native coronary artery without angina pectoris; M62.3 Immobility syndrome (paraplegic); M19.90 Unspecified osteoarthritis, unspecified site; F32.9 Major depressive disorder, single episode, unspecified; Z68.37 Body mass index [BMI] 37.0-37.9, adult; Z98.890 Other specified postprocedural states; Z87.891 Personal history of nicotine dependence; Z99.3 Dependence on wheelchair; Z95.1 Presence of aortocoronary bypass graft; Z79.4 Long term (current) use of insulin; Z79.01 Long term (current) use of anticoagulants
CPT/HCPCS: 11042; A4450

== ENCOUNTER → 2021-11-25 | Outpatient (CLI) | payer OTHER ==
[~2021-11-25] MED LIST changes: -LIDOCAINE HCL 4% LTA SOL 4 ML VIAL TP ONE
== END | disposition home or self-care (01) ==
LOC: RAH 11:20
PROVIDERS: ATTEND Internal Medicine
DX: Z12.31 Encounter for screening mammogram for malignant neoplasm of breast (principal)
CPT/HCPCS: 77067

== ENCOUNTER → 2021-12-08 | Outpatient (CLI) | payer OTHER | END | disposition home or self-care (01) | LOC: WHH 10:54 | PROVIDERS: ATTEND Family Medicine | DX: L89.312 Pressure ulcer of right buttock, stage 2 (principal); E11.628 Type 2 diabetes mellitus with other skin complications; E11.42 Type 2 diabetes mellitus with diabetic polyneuropathy; E11.22 Type 2 diabetes mellitus with diabetic chronic kidney disease; I13.0 Hypertensive heart and chronic kidney disease with heart failure and stage 1 through stage 4 chronic kidney disease, or unspecified chronic kidney disease; N18.9 Chronic kidney disease, unspecified; I50.22 Chronic systolic (congestive) heart failure; E66.01 Morbid (severe) obesity due to excess calories; I25.10 Atherosclerotic heart disease of native coronary artery without angina pectoris; E78.5 Hyperlipidemia, unspecified; E03.9 Hypothyroidism, unspecified; G82.20 Paraplegia, unspecified; M19.90 Unspecified osteoarthritis, unspecified site; Z99.3 Dependence on wheelchair; F32.9 Major depressive disorder, single episode, unspecified; Z79.01 Long term (current) use of anticoagulants; Z79.4 Long term (current) use of insulin; Z95.1 Presence of aortocoronary bypass graft; Z90.721 Acquired absence of ovaries, unilateral; Z68.36 Body mass index [BMI] 36.0-36.9, adult | CPT/HCPCS: G0463 ==

== ENCOUNTER 2022-01-13 18:55 | Inpatient (IN) | payer OTHER ==
[~2022-01-13] VITALS: Ht 160 cm; Wt 94.7 kg
[2022-01-13 20:06] LABS: BASOPHILS % (AUTO) 0.3 % (0.0-5.0); EOSINOPHILS % (AUTO) 0.6 % (0.0-8.0); HEMATOCRIT 33.5 % (36-48); LYMPHOCYTES % (AUTO) 22.9 % (21.0-51.0); MEAN CORPUSCULAR HEMOGLOBIN 27.8 pg (27.0-33.0); MEAN CORPUSCULAR HGB CONC 32.2 g/dL (32.0-36.0); MEAN CORPUSCULAR VOLUME 86.3 fL (79-99); MONOCYTES % (AUTO) 6.3 % (3.0-13.0); NEUTROPHILS % (AUTO) 69.4 % (40.0-77.0); PLATELET COUNT (AUTO) 270 K/uL (130-400); RED BLOOD CELL COUNT(AUTO) 3.88 MIL/uL (4.00-5.50); RED CELL DISTRIBUTION WIDTH 13.9 % (11.0-15.5); WHITE BLOOD COUNT (AUTO) 8.6 K/uL (4.8-10.8)
[2022-01-13 20:18] LABS: APPEARANCE,URINE SL CLOUDY (CLEAR); BILIRUBIN,URINE NEGATIVE (NEGATIVE); COLOR,URINE YELLOW (YELLOW); GLUCOSE, URINE (UA) >=1000 mg/dL (NEGATIVE); KETONES,URINE NEGATIVE (NEGATIVE); LEUKOCYTE ESTERASE ,URINE TRACE (NEGATIVE); NITRATE,URINE POSITIVE (NEGATIVE); OCCULT BLOOD,URINE NEGATIVE (NEGATIVE); PH,URINE 5.5 (5.0-8.0); PROTEIN,URINE NEGATIVE (NEGATIVE); UROBILINOGEN,URINE 0.2 mg/dL (0.2-1.0)
[2022-01-13 20:26] LABS: CREATININE 1.5 mg/dL (0.5-1.5); POTASSIUM 4.9 mmol/L (3.5-5.1)
[2022-01-13 20:31] LABS: BACTERIA,URINE Moderate /HPF (None Seen); MUCUS,URINE None Seen LPF (None Seen); RBC,URINE None Seen /HPF (0-1); SQUAMOUS EPITHELIAL CELL,UR Rare /HPF (0-2); YEAST,URINE BUDDING None Seen /HPF (None Seen)
[2022-01-13 20:31] LABS: ALBUMIN 3.1 g/dL (3.5-5.0); TOTAL PROTEIN, SERUM 6.8 g/dL (6.0-8.3)
[2022-01-13 20:32] LABS: B-TYPE NATRIURETIC PEPTIDE 11 pg/mL (0-100)
[2022-01-13] MEDS ORDERED: CEFTRIAXONE 1G VIAL IVP ONE (22:30)
[2022-01-13] MEDS ORDERED: GUAIFENESIN-DM 200/20 MG 10 ML PO PRN (23:00)
[2022-01-13] MEDS ORDERED: MORPHINE 4 MG SYG IV PRN (23:00)
[2022-01-13] MEDS ORDERED: HYDROCODONE/ACETAMINOPHEN 5/325 MG TAB PO PRN (23:00)
[2022-01-13] MEDS ORDERED: 0.9%NACL 1000ML 1,000 ML IV SCH (23:00)
[2022-01-13] MEDS ORDERED: ACETAMINOPHEN 325 MG TAB PO PRN (23:00)
[2022-01-13] MEDS ORDERED: ONDANSETRON 4MG INJ IV PRN (23:00)
[2022-01-13] MEDS: IPRATROPIUM/ALBUTEROL SULFATE 3 ML SOLUTION IH SCH (23:08)
[2022-01-13] MEDS: DOXYCYCLINE 100MG+NS 250ML 250 ML IV SCH (23:15)
[2022-01-13] MEDS ORDERED: METO10TA3 PO (23:27)
[2022-01-13] MEDS ORDERED: TRAM50TA4 PO (23:27)
[2022-01-13] MEDS ORDERED: ROPI1TAB13 PO (23:27)
[2022-01-13] MEDS ORDERED: DULO30CA52 PO (23:27)
[2022-01-13] MEDS ORDERED: VITAD50000 PO (23:27)
[2022-01-13] MEDS ORDERED: ASPI-1114 PO (23:27)
[2022-01-13] MEDS ORDERED: PREG150C46 PO (23:27)
[2022-01-13] MEDS ORDERED: LISI2.5T13 PO (23:27)
[2022-01-13] MEDS ORDERED: BACL20TA PO (23:27)
[2022-01-13] MEDS ORDERED: LEVO88CA4 PO (23:27)
[2022-01-13] MEDS ORDERED: MECO10005 PO (23:27)
[2022-01-13] MEDS ORDERED: ATOR40TA69 PO (23:27)
[2022-01-14 06:02] LABS: BASOPHILS % (AUTO) 0.3 % (0.0-5.0); EOSINOPHILS % (AUTO) 1.5 % (0.0-8.0); HEMATOCRIT 32.4 % (36-48); LYMPHOCYTES % (AUTO) 26.5 % (21.0-51.0); MEAN CORPUSCULAR HEMOGLOBIN 28.7 pg (27.0-33.0); MEAN CORPUSCULAR HGB CONC 32.7 g/dL (32.0-36.0); MEAN CORPUSCULAR VOLUME 87.8 fL (79-99); MONOCYTES % (AUTO) 8.1 % (3.0-13.0); PLATELET COUNT (AUTO) 244 K/uL (130-400); RED BLOOD CELL COUNT(AUTO) 3.69 MIL/uL (4.00-5.50); RED CELL DISTRIBUTION WIDTH 13.7 % (11.0-15.5); WHITE BLOOD COUNT (AUTO) 8.8 K/uL (4.8-10.8)
[2022-01-14 06:07] LABS: CREATININE 1.3 mg/dL (0.5-1.5); MAGNESIUM 1.9 mg/dL (1.80-2.40); PHOSPHORUS 3.7 mg/dL (2.5-4.9); POTASSIUM 4.5 mmol/L (3.5-5.1)
[2022-01-14 06:14] LABS: HEMOGLOBIN A1C 7.4 % (4.0-6.0)
[2022-01-14] MEDS ORDERED: LEVOTHYROXINE 88 MCG TABLET PO SCH (06:30)
[2022-01-14] MEDS: IPRATROPIUM/ALBUTEROL SULFATE 3 ML SOLUTION IH SCH ×3 (06:47→17:01)
[2022-01-14] MEDS ORDERED: INSULIN HUMULIN R 100 UNIT/ML 3ML SQ SCH (07:30)
[2022-01-14] MEDS ORDERED: INSULIN GLARGINE 100 UNITS/ML 10 ML VIAL SQ SCH ×2 (07:30→21:00)
[2022-01-14 08:39] LABS: ABG BASE EXCESS 0.7 mmol/L (-2.0-3.0); ABG HCO3 22.7 mmol/L (21.0-28.0); ABG OXYGEN SATURATION 98.1 % (95.0-99.0); ABG PCO2 28 mmHg (32-45)
[2022-01-14] MEDS ORDERED: ERGOCALCIFEROL (VITAMIN D2) 50,000 UNIT CAPSULE PO SCH (09:00)
[2022-01-14] MEDS ORDERED: INSU100V12 SQ (09:12)
[2022-01-14] MEDS ORDERED: INSU200I SQ ×2 (09:12)
[2022-01-14] MEDS ORDERED: LIRA0.6P SQ (09:12)
[2022-01-14] MEDS ORDERED: INSULIN HUMULIN R 100 UNIT/ML 3ML ONE (09:38)
[2022-01-14] MEDS: ASPIRIN 81MG CHEW TAB PO SCH (10:01)
[2022-01-14] MEDS: FAMOTIDINE 20MG VIAL IV SCH (10:01)
[2022-01-14] MEDS: DULOXETINE HCL 30 MG CAP PO SCH (10:01)
[2022-01-14] MEDS: BACLOFEN 10 MG TABLET PO SCH ×4 (10:01→22:05)
[2022-01-14] MEDS: HEPARIN 5,000 UNIT VIAL SQ SCH ×3 (10:02→22:06)
[2022-01-14] MEDS: CYANOCOBALAMIN (VITAMIN B-12) 1,000 MCG TABLET PO SCH (10:02)
[2022-01-14] MEDS: LISINOPRIL 2.5 MG TABLET PO SCH (10:02)
[2022-01-14] MEDS: PREGABALIN 75 MG CAPSULE PO SCH ×3 (10:02→22:05)
[2022-01-14] MEDS: TRAMADOL HCL 50 MG TABLET PO PRN ×2 (10:06→21:30)
[2022-01-14] MEDS ORDERED: INSULIN HUMULIN R 100 UNIT/ML 3ML SQ ONE (10:30)
[2022-01-14] MEDS: DOXYCYCLINE 100MG+NS 250ML 250 ML IV SCH ×2 (11:07→23:42)
[2022-01-14] MEDS: INSULIN HUMULIN R 100 UNIT/ML 3ML SQ SCH ×5 (12:51→22:06)
[2022-01-14] MEDS ORDERED: BISACODYL 5 MG TABLET.DR PO ONE (14:39)
[2022-01-14] MEDS: BISACODYL 5 MG TABLET.DR PO SCH (14:42)
[2022-01-14] MEDS: ROPINIROLE HCL 1 MG TABLET PO SCH (22:05)
[2022-01-14] MEDS: ATORVASTATIN 40 MG TABLET PO SCH (22:05)
[2022-01-14] MEDS ORDERED: CEFTRIAXONE 1G VIAL IV SCH (23:00)
[2022-01-15] VITALS (7 sets, daily range): BP systolic 112–150; BP diastolic 46–83
[2022-01-15] MEDS: IPRATROPIUM/ALBUTEROL SULFATE 3 ML SOLUTION IH SCH ×5 (00:51→23:26)
[2022-01-15 05:39] LABS: BASOPHILS % (AUTO) 0.4 % (0.0-5.0); HEMATOCRIT 32.6 % (36-48); LYMPHOCYTES % (AUTO) 25.3 % (21.0-51.0); MEAN CORPUSCULAR HEMOGLOBIN 28.4 pg (27.0-33.0); MEAN CORPUSCULAR HGB CONC 32.2 g/dL (32.0-36.0); MEAN CORPUSCULAR VOLUME 88.1 fL (79-99); NEUTROPHILS % (AUTO) 62.7 % (40.0-77.0); PLATELET COUNT (AUTO) 237 K/uL (130-400); RED CELL DISTRIBUTION WIDTH 14.1 % (11.0-15.5); WHITE BLOOD COUNT (AUTO) 8.5 K/uL (4.8-10.8)
[2022-01-15 06:01] LABS: ALBUMIN 2.9 g/dL (3.5-5.0); CREATININE 1.3 mg/dL (0.5-1.5); MAGNESIUM 1.8 mg/dL (1.80-2.40); TOTAL PROTEIN, SERUM 6.6 g/dL (6.0-8.3)
[2022-01-15] MEDS: LEVOTHYROXINE 50 MCG TABLET PO SCH (06:30)
[2022-01-15] MEDS: INSULIN HUMULIN R 100 UNIT/ML 3ML SQ SCH ×6 (06:31→21:23)
[2022-01-15] MEDS: CYANOCOBALAMIN (VITAMIN B-12) 1,000 MCG TABLET PO SCH (09:10)
[2022-01-15] MEDS: LISINOPRIL 2.5 MG TABLET PO SCH (09:11)
[2022-01-15] MEDS: BACLOFEN 10 MG TABLET PO SCH ×4 (09:11→20:40)
[2022-01-15] MEDS: DULOXETINE HCL 30 MG CAP PO SCH (09:12)
[2022-01-15] MEDS: PREGABALIN 75 MG CAPSULE PO SCH ×3 (09:12→20:40)
[2022-01-15] MEDS: BISACODYL 5 MG TABLET.DR PO SCH ×2 (09:13→20:40)
[2022-01-15] MEDS: ASPIRIN 81MG CHEW TAB PO SCH (09:14)
[2022-01-15] MEDS: FAMOTIDINE 20MG VIAL IV SCH (09:14)
[2022-01-15] MEDS: HEPARIN 5,000 UNIT VIAL SQ SCH ×3 (09:18→21:20)
[2022-01-15] MEDS: TRAMADOL HCL 50 MG TABLET PO PRN ×2 (09:48→20:51)
[2022-01-15] MEDS: DOXYCYCLINE 100MG+NS 250ML 250 ML IV SCH ×2 (11:13→23:56)
[2022-01-15] MEDS ORDERED: INSULIN HUMULIN R 100 UNIT/ML 3ML SQ SCH (11:30)
[2022-01-15] MEDS: ZOSYN 3.375GM +NS 50ML IV SCH ×3 (13:05→21:18)
[2022-01-15] MEDS: ATORVASTATIN 40 MG TABLET PO SCH (20:40)
[2022-01-15] MEDS: ROPINIROLE HCL 1 MG TABLET PO SCH (20:40)
[2022-01-15] MEDS ORDERED: INSULIN GLARGINE 100 UNITS/ML 10 ML VIAL SQ SCH (21:00)
[2022-01-15] MEDS ORDERED: 0.9% NACL 250ML 250 ML ONE (23:54)
[2022-01-16 04:10] VITALS: BP 108/57
[2022-01-16 05:12] LABS: BASOPHILS % (AUTO) 0.4 % (0.0-5.0); EOSINOPHILS % (AUTO) 4.3 % (0.0-8.0); HEMATOCRIT 31.4 % (36-48); LYMPHOCYTES % (AUTO) 26.3 % (21.0-51.0); MEAN CORPUSCULAR HEMOGLOBIN 28.4 pg (27.0-33.0); MEAN CORPUSCULAR HGB CONC 31.8 g/dL (32.0-36.0); MEAN CORPUSCULAR VOLUME 89.2 fL (79-99); MONOCYTES % (AUTO) 7.9 % (3.0-13.0); NEUTROPHILS % (AUTO) 60.5 % (40.0-77.0); PLATELET COUNT (AUTO) 246 K/uL (130-400); RED BLOOD CELL COUNT(AUTO) 3.52 MIL/uL (4.00-5.50); RED CELL DISTRIBUTION WIDTH 14.2 % (11.0-15.5); WHITE BLOOD COUNT (AUTO) 8.4 K/uL (4.8-10.8)
[2022-01-16] MEDS: ZOSYN 3.375GM +NS 50ML IV SCH ×2 (05:36→12:32)
[2022-01-16] MEDS: LEVOTHYROXINE 50 MCG TABLET PO SCH (05:36)
[2022-01-16 05:49] LABS: % IRON SATURATION 11.2 % (22-44)
[2022-01-16 05:54] LABS: ALBUMIN 2.8 g/dL (3.5-5.0); CREATININE 1.2 mg/dL (0.5-1.5); MAGNESIUM 1.8 mg/dL (1.80-2.40); POTASSIUM 3.7 mmol/L (3.5-5.1); TOTAL PROTEIN, SERUM 6.5 g/dL (6.0-8.3)
[2022-01-16] MEDS: INSULIN HUMULIN R 100 UNIT/ML 3ML SQ SCH ×3 (06:43→12:35)
[2022-01-16 07:04] VITALS: BP 105/41
[2022-01-16] MEDS: IPRATROPIUM/ALBUTEROL SULFATE 3 ML SOLUTION IH SCH ×2 (07:04→11:17)
[2022-01-16] MEDS ORDERED: COMPOUND IV MISC 1 EACH IVSOLN MISC PRN (09:00)
[2022-01-16] MEDS ORDERED: IRON SUCROSE COMPLEX 500 MG in 0.9% NACL 250ML 250 ML IV ONE (09:00)
[2022-01-16] MEDS ORDERED: KCL 20 MEQ ERTAB PO ONE (10:00)
[2022-01-16] MEDS: FAMOTIDINE 20MG VIAL IV SCH (10:13)
[2022-01-16] MEDS: BISACODYL 5 MG TABLET.DR PO SCH (10:13)
[2022-01-16] MEDS: LISINOPRIL 2.5 MG TABLET PO SCH (10:14)
[2022-01-16] MEDS: PREGABALIN 75 MG CAPSULE PO SCH ×2 (10:14→14:55)
[2022-01-16] MEDS: DULOXETINE HCL 30 MG CAP PO SCH (10:14)
[2022-01-16] MEDS: CYANOCOBALAMIN (VITAMIN B-12) 1,000 MCG TABLET PO SCH (10:14)
[2022-01-16] MEDS: ASPIRIN 81MG CHEW TAB PO SCH (10:14)
[2022-01-16] MEDS: BACLOFEN 10 MG TABLET PO SCH ×2 (10:15→12:32)
[2022-01-16] MEDS: TRAMADOL HCL 50 MG TABLET PO PRN (10:17)
[2022-01-16] MEDS: HEPARIN 5,000 UNIT VIAL SQ SCH ×2 (10:26→14:58)
[2022-01-16] MEDS ORDERED: INSULIN HUMULIN R 100 UNIT/ML 3ML SQ SCH (11:30)
[2022-01-16 12:00] VITALS: BP 101/48
[2022-01-16] MEDS: DOXYCYCLINE 100MG+NS 250ML 250 ML IV SCH (12:32)
[2022-01-16 16:00] VITALS: BP 110/49
== END 2022-01-16 18:23 | DRG 177 ==
LOC: EDH 18:55 → EDHIP 22:44 → 4CH 01-14 22:18 → 3AH 01-14 23:05
PROVIDERS: ADMIT Internal Medicine; ATTEND Internal Medicine
DX: J15.6 Pneumonia due to other Gram-negative bacteria (principal); E43 Unspecified severe protein-calorie malnutrition; N39.0 Urinary tract infection, site not specified; Z16.24 Resistance to multiple antibiotics; E11.65 Type 2 diabetes mellitus with hyperglycemia; D64.9 Anemia, unspecified; B96.20 Unspecified Escherichia coli [E. coli] as the cause of diseases classified elsewhere; G89.29 Other chronic pain; Z20.822 Contact with and (suspected) exposure to COVID-19; E03.9 Hypothyroidism, unspecified; F32.A Depression, unspecified; E11.40 Type 2 diabetes mellitus with diabetic neuropathy, unspecified; Z82.49 Family history of ischemic heart disease and other diseases of the circulatory system; Z95.1 Presence of aortocoronary bypass graft; I11.0 Hypertensive heart disease with heart failure; I25.10 Atherosclerotic heart disease of native coronary artery without angina pectoris; I50.9 Heart failure, unspecified; Z79.4 Long term (current) use of insulin; E61.1 Iron deficiency; Z68.37 Body mass index [BMI] 37.0-37.9, adult
CPT/HCPCS: 36415; 36600; 71045; 80048; 80053; 81001; 82435; 82550; 82607; 82728; 82746; 82803; 82947; 82948; 83036; 83540; 83550; 83605; 83735; 83880; 84100; 84132; 84145; 84295; 84484; 85018; 85025; 87040; 87071; 87077; 87088; 87186; 87205; 87635; 93005; 94640; 94664; 97039; G0378; J0696; J1644; J1756; J1815; J2543; J3490; J7030; J7050

== ENCOUNTER 2022-02-12 08:22 | Emergency (ER) | payer OTHER ==
[~2022-02-12] VITALS: Ht 160 cm; Wt 113.4 kg
[~2022-02-12 08:22] MED LIST changes: +ASPI-1114 PO; -ASPI-1197 PO; +ATOR40TA69 PO; -ATOR40TA71 PO; -DULO60CA64 PO; -ERGO400T7 PO; -INSU100C6 SQ; -INSU100V12 SQ; -LEVO100T12 PO; +LEVO88CA4 PO; +LIRA0.6P SQ; -LIRA0.6P2 SQ; +MECO10005 PO; -METO-296 PO; +METO10TA3 PO; -METO50TA9 PO; -MIRA50TA PO; -ONDA4TAB10 PO; -PREG150C PO; +PREG150C46 PO; -RANI150T7 PO; +ROPI1TAB13 PO; -ROPI1TAB38 PO; +VITAD50000 PO
[2022-02-12] MEDS ORDERED: MECLIZINE HCL 25 MG TABLET PO ONE (08:30)
[2022-02-12] MEDS ORDERED: ONDANSETRON 4MG INJ IVP ONE (08:30)
[2022-02-12 09:02] LABS: BASOPHILS % (AUTO) 0.4 % (0.0-5.0); EOSINOPHILS % (AUTO) 2.4 % (0.0-8.0); HEMATOCRIT 32.7 % (36-48); MEAN CORPUSCULAR HEMOGLOBIN 28.5 pg (27.0-33.0); MEAN CORPUSCULAR HGB CONC 31.8 g/dL (32.0-36.0); MEAN CORPUSCULAR VOLUME 89.6 fL (79-99); MONOCYTES % (AUTO) 6.1 % (3.0-13.0); NEUTROPHILS % (AUTO) 66.4 % (40.0-77.0); PLATELET COUNT (AUTO) 239 K/uL (130-400); RED BLOOD CELL COUNT(AUTO) 3.65 MIL/uL (4.00-5.50); RED CELL DISTRIBUTION WIDTH 14.3 % (11.0-15.5); WHITE BLOOD COUNT (AUTO) 7.2 K/uL (4.8-10.8)
[2022-02-12 09:09] LABS: APPEARANCE,URINE CLEAR (CLEAR); BILIRUBIN,URINE NEGATIVE (NEGATIVE); COLOR,URINE YELLOW (YELLOW); GLUCOSE, URINE (UA) NEGATIVE (NEGATIVE); KETONES,URINE NEGATIVE (NEGATIVE); LEUKOCYTE ESTERASE ,URINE MODERATE (NEGATIVE); NITRATE,URINE NEGATIVE (NEGATIVE); OCCULT BLOOD,URINE NEGATIVE (NEGATIVE); PROTEIN,URINE NEGATIVE (NEGATIVE); UROBILINOGEN,URINE 0.2 mg/dL (0.2-1.0)
[2022-02-12 09:13] LABS: CREATININE 0.9 mg/dL (0.5-1.5)
[2022-02-12 09:17] LABS: TOTAL PROTEIN, SERUM 6.1 g/dL (6.0-8.3)
[2022-02-12] MEDS ORDERED: CEFTRIAXONE 1G VIAL IVP ONE (09:30)
[2022-02-12 09:37] LABS: RBC,URINE None Seen /HPF (0-1)
[2022-02-12 09:38] LABS: BACTERIA,URINE Rare /HPF (None Seen); SQUAMOUS EPITHELIAL CELL,UR 0-2 /HPF (0-2); YEAST,URINE BUDDING Moderate /HPF (None Seen)
[2022-02-12] MEDS ORDERED: FLUCONAZOLE 100 MG TAB PO SCH (11:00)
[2022-02-12 11:45] VITALS: BP 149/66
[2022-02-12] MEDS ORDERED: CEFD300C3 PO (12:54)
[2022-02-12] MEDS ORDERED: MECL-226 PO (12:54)
== END 2022-02-12 15:03 | disposition home or self-care (01) ==
LOC: EDH 08:22
DX: N39.0 Urinary tract infection, site not specified (principal); B37.9 Candidiasis, unspecified; R42 Dizziness and giddiness; Z20.822 Contact with and (suspected) exposure to COVID-19; E11.9 Type 2 diabetes mellitus without complications; E03.9 Hypothyroidism, unspecified; F17.200 Nicotine dependence, unspecified, uncomplicated; Z79.82 Long term (current) use of aspirin; Z79.899 Other long term (current) drug therapy
CPT/HCPCS: 99285; 96374; 70450; 87635; 96375; 84484; 80053; 85025; 87088; 81001; 36415; 93005; C9803; J0696; J2405

== ENCOUNTER 2022-09-14 19:44 | Inpatient (IN) | payer OTHER ==
[~2022-09-14] VITALS: Ht 161.3 cm; Wt 97.8 kg
[~2022-09-14 19:44] MED LIST changes: +CEFD300C3 PO; +MECL-226 PO
[2022-09-14 20:16] LABS: BASOPHILS % (AUTO) 0.4 % (0.0-5.0); EOSINOPHILS % (AUTO) 0.3 % (0.0-8.0); HEMATOCRIT 35.3 % (36-48); MEAN CORPUSCULAR HEMOGLOBIN 27.9 pg (27.0-33.0); MEAN CORPUSCULAR HGB CONC 31.4 g/dL (32.0-36.0); MEAN CORPUSCULAR VOLUME 88.7 fL (79-99); MONOCYTES % (AUTO) 7.1 % (3.0-13.0); NEUTROPHILS % (AUTO) 80.5 % (40.0-77.0); PLATELET COUNT (AUTO) 238 K/uL (130-400); RED BLOOD CELL COUNT(AUTO) 3.98 MIL/uL (4.00-5.50); RED CELL DISTRIBUTION WIDTH 13.6 % (11.0-15.5); WHITE BLOOD COUNT (AUTO) 10.4 K/uL (4.8-10.8)
[2022-09-14 20:29] LABS: APPEARANCE,URINE CLOUDY (CLEAR); BILIRUBIN,URINE NEGATIVE (NEGATIVE); COLOR,URINE LIGHT-YELLOW (YELLOW); GLUCOSE, URINE (UA) NEGATIVE (NEGATIVE); KETONES,URINE 5 mg/dL (NEGATIVE); LEUKOCYTE ESTERASE ,URINE 500 Leu/uL (NEGATIVE); NITRATE,URINE 2+ (NEGATIVE); PH,URINE 6.5 (5.0-8.0); PROTEIN,URINE 20 mg/dL (NEGATIVE); UROBILINOGEN,URINE 0.2 mg/dL (0.2-1.0)
[2022-09-14] MEDS ORDERED: ACETAMINOPHEN 325 MG TAB PO ONE (20:30)
[2022-09-14] MEDS ORDERED: 0.9%NACL 1000ML 1,000 ML IV ONE (20:30)
[2022-09-14 20:31] LABS: CREATININE 1.2 mg/dL (0.5-1.5); POTASSIUM 4.8 mmol/L (3.5-5.1)
[2022-09-14 20:35] LABS: ALBUMIN 3.2 g/dL (3.5-5.0)
[2022-09-14 20:51] LABS: BACTERIA,URINE RARE /HPF (None Seen); MUCUS,URINE RARE LPF (None Seen); SQUAMOUS EPITHELIAL CELL,UR RARE /HPF (0-2); WBC,URINE 26-50 /HPF (0-1); YEAST,URINE BUDDING FEW /HPF (None Seen)
[2022-09-14] MEDS ORDERED: CEFTRIAXONE 1G VIAL ONE (21:26)
[2022-09-14] MEDS ORDERED: 0.9%NACL 1000ML 1,500 ML IV ONE (21:30)
[2022-09-14] MEDS ORDERED: CEFTRIAXONE 1G VIAL IVP ONE (21:30)
[2022-09-14] MEDS ORDERED: ASCO500C18 PO (21:38)
[2022-09-14] MEDS ORDERED: CYAN250014 PO (21:38)
[2022-09-14] MEDS ORDERED: ROSU20TA31 PO (21:38)
[2022-09-14] MEDS ORDERED: LORA10TA7 PO (21:38)
[2022-09-14] MEDS ORDERED: ACETAMINOPHEN 325 MG TAB PO PRN (22:00)
[2022-09-14] MEDS ORDERED: POTASSIUM CHLORIDE 20MEQ/100ML 100 ML IV PRN (22:00)
[2022-09-14] MEDS ORDERED: MAGNESIUM 2GM PREMIX 50ML 50 ML IV PRN (22:00)
[2022-09-14] MEDS ORDERED: POTASSIUM CHLORIDE 10% ELIXIR 20 MEQ/15 ML UDCUP PO PRN (22:00)
[2022-09-14] MEDS ORDERED: KCL 20 MEQ ERTAB PO PRN (22:00)
[2022-09-14] MEDS ORDERED: MORPHINE 2 MG SYG IV PRN (22:00)
[2022-09-14] MEDS: CEFTRIAXONE 1G VIAL IV SCH (22:00)
[2022-09-14] MEDS ORDERED: MORPHINE 4 MG SYG IV PRN (22:00)
[2022-09-14] MEDS ORDERED: PHARMACY COMMUNICATION MISC SCH (22:00)
[2022-09-14] MEDS ORDERED: LIDOCAINE HCL-MPF 1% 2ML VIAL IV PRN (22:00)
[2022-09-14] MEDS ORDERED: LACTATED RINGERS IV SCH (22:30)
[2022-09-15] MEDS ORDERED: INSU100V12 SQ (01:30)
[2022-09-15] MEDS ORDERED: SEMA1PEN3 SQ (01:30)
[2022-09-15] MEDS ORDERED: INSU100V39 SQ (01:30)
[2022-09-15 02:40] VITALS: BP 137/72
[2022-09-15] MEDS ORDERED: AEC81 PO (03:56)
[2022-09-15 04:00] VITALS: BP 142/76
[2022-09-15 04:30] LABS: CREATININE 0.6 mg/dL (0.5-1.5); MAGNESIUM 1.1 mg/dL (1.80-2.40); PHOSPHORUS 2.2 mg/dL (2.5-4.9); POTASSIUM 4.4 mmol/L (3.5-5.1); THYROID STIMULATING HORMONE 0.67 uIU/mL (0.36-3.74)
[2022-09-15] MEDS: INSULIN HUMULIN R 100 UNIT/ML 3ML SQ SCH ×4 (05:37→20:27)
[2022-09-15 06:58] LABS: BASOPHILS % (AUTO) 0.4 % (0.0-5.0); EOSINOPHILS % (AUTO) 0.7 % (0.0-8.0); HEMATOCRIT 22.4 % (36-48); LYMPHOCYTES % (AUTO) 31.5 % (21.0-51.0); MEAN CORPUSCULAR HEMOGLOBIN 28.1 pg (27.0-33.0); MEAN CORPUSCULAR HGB CONC 30.4 g/dL (32.0-36.0); MEAN CORPUSCULAR VOLUME 92.6 fL (79-99); MONOCYTES % (AUTO) 10.8 % (3.0-13.0); NEUTROPHILS % (AUTO) 56.2 % (40.0-77.0); PLATELET COUNT (AUTO) 146 K/uL (130-400); RED BLOOD CELL COUNT(AUTO) 2.42 MIL/uL (4.00-5.50); RED CELL DISTRIBUTION WIDTH 13.5 % (11.0-15.5); WHITE BLOOD COUNT (AUTO) 4.5 K/uL (4.8-10.8)
[2022-09-15 08:00] VITALS: BP 147/65
[2022-09-15] MEDS: FAMOTIDINE 20MG VIAL IV SCH (08:27)
[2022-09-15] MEDS: ONDANSETRON 4MG INJ IV PRN ×2 (08:34→14:12)
[2022-09-15] MEDS: ACETAMINOPHEN 325 MG TAB PO PRN (08:41)
[2022-09-15 09:08] LABS: HEMATOCRIT 35.8 % (36-48); MEAN CORPUSCULAR HEMOGLOBIN 28.1 pg (27.0-33.0); MEAN CORPUSCULAR HGB CONC 31.8 g/dL (32.0-36.0); MEAN CORPUSCULAR VOLUME 88.2 fL (79-99); RED BLOOD CELL COUNT(AUTO) 4.06 MIL/uL (4.00-5.50); RED CELL DISTRIBUTION WIDTH 13.5 % (11.0-15.5); WHITE BLOOD COUNT (AUTO) 6.4 K/uL (4.8-10.8)
[2022-09-15] MEDS: ENOXAPARIN SODIUM 40 MG/0.4 ML SYRINGE SQ SCH (09:54)
[2022-09-15 12:00] VITALS: BP 135/62
[2022-09-15] MEDS: POLYETHYLENE GLYCOL 3350 17 GM POWD.PACK PO SCH (12:09)
[2022-09-15] MEDS ORDERED: TRAMADOL HCL 50 MG TABLET PO PRN (12:30)
[2022-09-15] MEDS ORDERED: GLUCAGON 1MG KIT 1 MG ML IM PRN (12:30)
[2022-09-15] MEDS ORDERED: DEXTROSE 50%-WATER 50 ML DISP.SYRIN IV PRN (12:30)
[2022-09-15] MEDS: TRAMADOL HCL 50 MG TABLET PO PRN ×2 (14:13→20:28)
[2022-09-15 16:00] VITALS: BP 155/74
[2022-09-15 20:00] VITALS: BP 134/72
[2022-09-15] MEDS: ROPINIROLE HCL 1 MG TABLET PO SCH (20:25)
[2022-09-15] MEDS: ATORVASTATIN 40 MG TABLET PO SCH (20:25)
[2022-09-15] MEDS: LACTULOSE 20 GM/30 ML UDCUP PO SCH (20:25)
[2022-09-15] MEDS: INSULIN GLARGINE 100 UNITS/ML 10 ML VIAL SQ SCH (20:26)
[2022-09-15] MEDS: CEFTRIAXONE 1G VIAL IV SCH (21:13)
[2022-09-16] VITALS: BP 138/71
[2022-09-16 04:00] VITALS: BP 149/85
[2022-09-16] MEDS: INSULIN HUMULIN R 100 UNIT/ML 3ML SQ SCH ×4 (05:57→19:37)
[2022-09-16 08:04] VITALS: BP 120/84
[2022-09-16] MEDS: INSULIN GLARGINE 100 UNITS/ML 10 ML VIAL SQ SCH ×2 (08:19→19:40)
[2022-09-16] MEDS: FAMOTIDINE 20MG VIAL IV SCH (08:21)
[2022-09-16] MEDS: CYANOCOBALAMIN (VITAMIN B-12) 1,000 MCG TABLET PO SCH (08:22)
[2022-09-16] MEDS: ASCORBIC ACID 500 MG TAB PO SCH (08:22)
[2022-09-16] MEDS: LORATADINE 10 MG TABLET PO SCH (08:22)
[2022-09-16] MEDS: ENOXAPARIN SODIUM 40 MG/0.4 ML SYRINGE SQ SCH (08:22)
[2022-09-16] MEDS: DULOXETINE HCL 30 MG CAP PO SCH (08:22)
[2022-09-16] MEDS: POLYETHYLENE GLYCOL 3350 17 GM POWD.PACK PO SCH (08:22)
[2022-09-16] MEDS: ASPIRIN 81 MG EC TAB PO SCH (08:23)
[2022-09-16] MEDS: LACTULOSE 20 GM/30 ML UDCUP PO SCH ×2 (08:23→19:30)
[2022-09-16] MEDS: TRAMADOL HCL 50 MG TABLET PO PRN ×2 (08:23→19:31)
[2022-09-16 11:37] VITALS: BP 140/82
[2022-09-16] MEDS: ACETAMINOPHEN 325 MG TAB PO PRN (16:31)
[2022-09-16 18:31] VITALS: BP 138/74
[2022-09-16] MEDS: ROPINIROLE HCL 1 MG TABLET PO SCH (19:31)
[2022-09-16] MEDS: ATORVASTATIN 40 MG TABLET PO SCH (19:31)
[2022-09-16] MEDS: CEFTRIAXONE 1G VIAL IV SCH (19:40)
[2022-09-16 20:02] VITALS: BP 139/88
[2022-09-17 04:00] VITALS: BP 166/86
[2022-09-17] MEDS: ACETAMINOPHEN 325 MG TAB PO PRN ×2 (05:36→11:47)
[2022-09-17] MEDS: INSULIN HUMULIN R 100 UNIT/ML 3ML SQ SCH ×3 (05:42→16:46)
[2022-09-17 08:26] VITALS: BP 164/74
[2022-09-17] MEDS: TRAMADOL HCL 50 MG TABLET PO PRN ×2 (08:35→16:47)
[2022-09-17] MEDS: POLYETHYLENE GLYCOL 3350 17 GM POWD.PACK PO SCH (09:25)
[2022-09-17] MEDS: FAMOTIDINE 20MG VIAL IV SCH (09:25)
[2022-09-17] MEDS: DULOXETINE HCL 30 MG CAP PO SCH (09:25)
[2022-09-17] MEDS: LACTULOSE 20 GM/30 ML UDCUP PO SCH (09:25)
[2022-09-17] MEDS: ENOXAPARIN SODIUM 40 MG/0.4 ML SYRINGE SQ SCH (09:26)
[2022-09-17] MEDS: CYANOCOBALAMIN (VITAMIN B-12) 1,000 MCG TABLET PO SCH (09:26)
[2022-09-17] MEDS: ASPIRIN 81 MG EC TAB PO SCH (09:26)
[2022-09-17] MEDS: ASCORBIC ACID 500 MG TAB PO SCH (09:26)
[2022-09-17] MEDS: LORATADINE 10 MG TABLET PO SCH (09:26)
[2022-09-17] MEDS: INSULIN GLARGINE 100 UNITS/ML 10 ML VIAL SQ SCH (09:42)
[2022-09-17] MEDS ORDERED: ATOR40TA69 PO (10:20)
[2022-09-17] MEDS ORDERED: CEPH500B PO (10:23)
[2022-09-17 11:12] VITALS: BP 127/96
[2022-09-17 12:00] VITALS: BP 127/71
[2022-09-17 16:30] VITALS: BP 163/76
== END 2022-09-17 18:00 | DRG 871 ==
LOC: EDH 19:44 → EDHIP 21:51 → 4DH 09-15 01:31
PROVIDERS: ADMIT Internal Medicine; ATTEND Internal Medicine
DX: A41.9 Sepsis, unspecified organism (principal); I50.33 Acute on chronic diastolic (congestive) heart failure; R53.2 Functional quadriplegia; N39.0 Urinary tract infection, site not specified; G81.94 Hemiplegia, unspecified affecting left nondominant side; E11.65 Type 2 diabetes mellitus with hyperglycemia; I11.0 Hypertensive heart disease with heart failure; Z20.822 Contact with and (suspected) exposure to COVID-19; B96.20 Unspecified Escherichia coli [E. coli] as the cause of diseases classified elsewhere; E03.9 Hypothyroidism, unspecified; E66.9 Obesity, unspecified; G89.29 Other chronic pain; M54.9 Dorsalgia, unspecified; E78.00 Pure hypercholesterolemia, unspecified; Z81.8 Family history of other mental and behavioral disorders; Z82.49 Family history of ischemic heart disease and other diseases of the circulatory system; Z90.49 Acquired absence of other specified parts of digestive tract; Z90.710 Acquired absence of both cervix and uterus; Z95.1 Presence of aortocoronary bypass graft; Z99.3 Dependence on wheelchair; Z68.37 Body mass index [BMI] 37.0-37.9, adult
CPT/HCPCS: 36415; 80048; 80053; 81001; 82948; 83036; 83605; 83735; 83880; 84100; 84145; 84443; 84484; 85025; 85027; 87040; 87077; 87088; 87186; 87635; 87804; 93005; 97039; 99291; C9803; G0378; J0696; J1650; J1815; J2405; J3475; J3490; J7120

== ENCOUNTER 2022-11-19 07:59 | Emergency (ER) | payer OTHER ==
[~2022-11-19] VITALS: Ht 160 cm; Wt 95.3 kg
[~2022-11-19 07:59] MED LIST changes: +AEC81 PO; +ASCO500C18 PO; -ASPI-1114 PO; -CEFD300C3 PO; +CEPH500B PO; +CYAN250014 PO; +INSU100V12 SQ; +INSU100V39 SQ; -LISI2.5T13 PO; +LORA10TA7 PO; -MECL-226 PO; -MECO10005 PO; -METO10TA3 PO; +SEMA1PEN3 SQ; -VITAD50000 PO
[2022-11-19 08:25] LABS: BASOPHILS % (AUTO) 0.5 % (0.0-5.0); EOSINOPHILS % (AUTO) 2.5 % (0.0-8.0); MEAN CORPUSCULAR HEMOGLOBIN 27.7 pg (27.0-33.0); MEAN CORPUSCULAR HGB CONC 32.1 g/dL (32.0-36.0); MEAN CORPUSCULAR VOLUME 86.5 fL (79-99); MONOCYTES % (AUTO) 8.7 % (3.0-13.0); NEUTROPHILS % (AUTO) 49.8 % (40.0-77.0); PLATELET COUNT (AUTO) 256 K/uL (130-400); RED BLOOD CELL COUNT(AUTO) 3.93 MIL/uL (4.00-5.50); RED CELL DISTRIBUTION WIDTH 14.1 % (11.0-15.5); WHITE BLOOD COUNT (AUTO) 5.6 K/uL (4.8-10.8)
[2022-11-19] MEDS ORDERED: KETOROLAC 30MG VIAL (30MG/ML) IVP ONE (08:30)
[2022-11-19] MEDS ORDERED: FAMOTIDINE 20MG VIAL IV ONE (08:30)
[2022-11-19] MEDS ORDERED: METOCLOPRAMIDE 10 MG/2 ML VIAL IVP ONE (08:30)
[2022-11-19 08:35] LABS: INR 0.94 (0.85-1.15); PROTHROMBIN TIME 10.3 SEC (9.6-11.6)
[2022-11-19 08:37] LABS: PARTIAL THROMBOPLASTIN TIME 23.1 SEC (26.3-35.5)
[2022-11-19 08:39] LABS: ALBUMIN 3.3 g/dL (3.5-5.0); CREATININE 1.5 mg/dL (0.5-1.5); POTASSIUM 4.6 mmol/L (3.5-5.1); TOTAL PROTEIN, SERUM 6.9 g/dL (6.0-8.3)
[2022-11-19 09:00] LABS: APPEARANCE,URINE CLEAR (CLEAR); BILIRUBIN,URINE NEGATIVE (NEGATIVE); COLOR,URINE LIGHT-YELLOW (YELLOW); GLUCOSE, URINE (UA) 30 mg/dL (NEGATIVE); KETONES,URINE NEGATIVE (NEGATIVE); LEUKOCYTE ESTERASE ,URINE 500 Leu/uL (NEGATIVE); NITRATE,URINE NEGATIVE (NEGATIVE); OCCULT BLOOD,URINE NEGATIVE (NEGATIVE); PROTEIN,URINE NEGATIVE (NEGATIVE); UROBILINOGEN,URINE 0.2 mg/dL (0.2-1.0)
[2022-11-19] MEDS ORDERED: 0.9%NACL 1000ML 1,000 ML IV SCH (09:00)
[2022-11-19 09:05] LABS: BACTERIA,URINE RARE /HPF (None Seen); MUCUS,URINE RARE LPF (None Seen); RBC,URINE 0-1 /HPF (0-1); TRANSITIONAL EPI CELLS,URINE RARE /HPF (None Seen); WBC,URINE 26-50 /HPF (0-1)
[2022-11-19] MEDS ORDERED: MACR100 PO (11:30)
[2022-11-19] MEDS ORDERED: CEFTRIAXONE 2GM VIAL IVPB ONE (11:30)
[2022-11-19 13:04] VITALS: BP 135/81
== END 2022-11-19 13:09 | disposition home or self-care (01) ==
LOC: EDH 07:59
DX: N39.0 Urinary tract infection, site not specified (principal); S39.012A Strain of muscle, fascia and tendon of lower back, initial encounter; E86.0 Dehydration; I10 Essential (primary) hypertension; E03.9 Hypothyroidism, unspecified; E11.9 Type 2 diabetes mellitus without complications; F17.200 Nicotine dependence, unspecified, uncomplicated; Z79.82 Long term (current) use of aspirin; Z79.899 Other long term (current) drug therapy; Z95.1 Presence of aortocoronary bypass graft; Z98.890 Other specified postprocedural states; W18.39XA Other fall on same level, initial encounter; Y93.89 Activity, other specified; Y92.89 Other specified places as the place of occurrence of the external cause; Y99.8 Other external cause status
CPT/HCPCS: 99284; 96365; 96375; 80053; 85025; 85610; 85730; 87088; 81001; 36415; 72100; 73564 ×2; J3490; J7030; J0696; J1885; J2765

== ENCOUNTER → 2022-12-24 | Outpatient (CLI) | payer OTHER, MEDICARE ==
[~2022-12-24] MED LIST changes: +MACR100 PO
[2022-12-24 12:29] LABS: ALBUMIN 3.3 g/dL (3.5-5.0); CREATININE 1.2 mg/dL (0.5-1.5); POTASSIUM 4.8 mmol/L (3.5-5.1); TOTAL PROTEIN, SERUM 7.2 g/dL (6.0-8.3)
== END | disposition home or self-care (01) ==
LOC: LAB 09:37
PROVIDERS: ATTEND Internal Medicine Cardiovascular Disease
DX: I25.10 Atherosclerotic heart disease of native coronary artery without angina pectoris (principal); E11.9 Type 2 diabetes mellitus without complications; E78.2 Mixed hyperlipidemia
CPT/HCPCS: 36415; 80053; 80061

== ENCOUNTER 2023-02-07 20:26 | Inpatient (IN) | payer OTHER, MEDICARE ==
[~2023-02-07] VITALS: Ht 160 cm; Wt 92.3 kg
[~2023-02-07 20:26] MED LIST changes: -INSU100V39 SQ; +INSU100V45 SQ; -ROPI1TAB13 PO; +ROPI1TAB46 PO
[2023-02-08 02:25] LABS: BASOPHILS # (AUTO) 0.03 K/uL (0.00-0.20); BASOPHILS % (AUTO) 0.3 % (0.0-5.0); EOSINOPHILS # (AUTO) 0.28 K/uL (0.00-0.70); EOSINOPHILS % (AUTO) 3.1 % (0.0-8.0); HEMATOCRIT 33.6 % (36-48); IMMATURE GRANULOCYTE ABSOLUTE 0.04 K/uL (0-1); LYMPHOCYTES # (AUTO) 2.3 K/uL (1.0-4.8); LYMPHOCYTES % (AUTO) 25.9 % (21.0-51.0); MEAN CORPUSCULAR HEMOGLOBIN 28.5 pg (27.0-33.0); MEAN CORPUSCULAR HGB CONC 32.7 g/dL (32.0-36.0); MONOCYTES # (AUTO) 0.9 K/uL (0.1-1.0); MONOCYTES % (AUTO) 10.5 % (3.0-13.0); NEUTROPHILS # (AUTO) 5.3 K/uL (1.8-7.7); NEUTROPHILS % (AUTO) 59.8 % (40.0-77.0); PLATELET COUNT (AUTO) 262 K/uL (130-400); RED BLOOD CELL COUNT(AUTO) 3.86 MIL/uL (4.00-5.50); RED CELL DISTRIBUTION WIDTH 13.7 % (11.0-15.5); WHITE BLOOD COUNT (AUTO) 8.9 K/uL (4.8-10.8)
[2023-02-08 02:33] LABS: CREATININE 1.1 mg/dL (0.5-1.5); POTASSIUM 4.8 mmol/L (3.5-5.1)
[2023-02-08 02:35] LABS: INR 0.93 (0.85-1.15); PROTHROMBIN TIME 10.6 SEC (9.6-11.6)
[2023-02-08 02:37] LABS: PARTIAL THROMBOPLASTIN TIME 24.5 SEC (26.3-35.5)
[2023-02-08 02:38] LABS: ALBUMIN 3.2 g/dL (3.5-5.0); BILIRUBIN,TOTAL 1.2 mg/dL (0.2-1.0); TOTAL PROTEIN, SERUM 6.8 g/dL (6.0-8.3)
[2023-02-08] MEDS ORDERED: HYDROCODONE/ACETAMINOPHEN 5/325 MG TAB PO ONE (04:30)
[2023-02-08] MEDS ORDERED: ACETAMINOPHEN 325 MG TAB PO PRN ×2 (04:30→06:00)
[2023-02-08 08:30] VITALS: BP 130/59; PULSE 80; RESP 18
[2023-02-08] MEDS: FAMOTIDINE 20MG TAB PO SCH ×2 (09:34→20:57)
[2023-02-08 11:13] VITALS: BP 139/71; PULSE 84; RESP 18
[2023-02-08] MEDS: ONDANSETRON 4MG INJ IV PRN (14:05)
[2023-02-08] MEDS: ACETAMINOPHEN 325 MG TAB PO PRN (14:08)
[2023-02-08] MEDS ORDERED: LISI2.5T13 PO (14:30)
[2023-02-08] MEDS ORDERED: INSU100V12 SQ (14:30)
[2023-02-08] MEDS ORDERED: ROSU20TA73 PO (14:30)
[2023-02-08] MEDS ORDERED: METO10TA3 PO (14:30)
[2023-02-08] MEDS ORDERED: DULO60CA64 PO (14:35)
[2023-02-08 16:46] VITALS: BP 120/52; PULSE 93; RESP 17
[2023-02-08] MEDS ORDERED: GLUCAGON 1MG KIT 1 MG ML IM PRN (17:00)
[2023-02-08] MEDS ORDERED: DEXTROSE 50%-WATER 50 ML DISP.SYRIN IV PRN (17:00)
[2023-02-08 17:35] LABS: HEMATOCRIT 34.5 % (36-48); MEAN CORPUSCULAR HEMOGLOBIN 27.8 pg (27.0-33.0); MEAN CORPUSCULAR HGB CONC 32.2 g/dL (32.0-36.0); MEAN CORPUSCULAR VOLUME 86.3 fL (79-99); PLATELET COUNT (AUTO) 269 K/uL (130-400); RED CELL DISTRIBUTION WIDTH 13.4 % (11.0-15.5); WHITE BLOOD COUNT (AUTO) 8.4 K/uL (4.8-10.8)
[2023-02-08 17:45] LABS: CREATININE 1.1 mg/dL (0.5-1.5); POTASSIUM 4.9 mmol/L (3.5-5.1)
[2023-02-08] MEDS: 0.9%NACL 1000ML 1,000 ML IV SCH (17:51)
[2023-02-08 18:04] LABS: BASOPHILS # (AUTO) 0.05 K/uL (0.00-0.20); BASOPHILS % (AUTO) 0.6 % (0.0-5.0); EOSINOPHILS # (AUTO) 0.08 K/uL (0.00-0.70); IMMATURE GRANULOCYTE ABSOLUTE 0.03 K/uL (0-1); LYMPHOCYTES # (AUTO) 1.5 K/uL (1.0-4.8); LYMPHOCYTES % (AUTO) 18.6 % (21.0-51.0); MONOCYTES # (AUTO) 0.5 K/uL (0.1-1.0); NEUTROPHILS % (AUTO) 73.4 % (40.0-77.0)
[2023-02-08 18:12] LABS: APPEARANCE,URINE CLEAR (CLEAR); BILIRUBIN,URINE NEGATIVE (NEGATIVE); COLOR,URINE LIGHT-YELLOW (YELLOW); GLUCOSE, URINE (UA) >=1000 mg/dL (NEGATIVE); KETONES,URINE 60 mg/dL (NEGATIVE); LEUKOCYTE ESTERASE ,URINE 250 Leu/uL (NEGATIVE); NITRATE,URINE NEGATIVE (NEGATIVE); OCCULT BLOOD,URINE NEGATIVE (NEGATIVE); PH,URINE 6.5 (5.0-8.0); PROTEIN,URINE NEGATIVE (NEGATIVE); UROBILINOGEN,URINE 0.2 mg/dL (0.2-1.0)
[2023-02-08 18:19] LABS: HEMOGLOBIN A1C 7.2 % (4.0-6.0)
[2023-02-08 20:00] VITALS: BP 137/63; PULSE 91; RESP 20; O2SAT 96
[2023-02-08] MEDS: PREGABALIN 150 MG PO SCH (20:56)
[2023-02-08] MEDS: BACLOFEN 20 MG PO SCH (20:56)
[2023-02-08] MEDS: METOCLOPRAMIDE 10 MG TABLET PO SCH (20:57)
[2023-02-08] MEDS: LISINOPRIL 2.5 MG TABLET PO SCH (20:57)
[2023-02-08] MEDS: ROPINIROLE HCL 1 MG TABLET PO SCH (20:57)
[2023-02-08] MEDS: TRAMADOL HCL 50 MG TABLET PO PRN (20:57)
[2023-02-08] MEDS: ATORVASTATIN 40 MG TABLET PO SCH (20:57)
[2023-02-08] MEDS: INSULIN HUMULIN R 100 UNIT/ML 3ML SQ SCH (20:59)
[2023-02-08] MEDS ORDERED: NON-FORMULARY MEDICATION 1 EACH (Rosuvastatin Calcium 20 MG) PO SCH (21:00)
[2023-02-09] VITALS (7 sets, daily range): BP systolic 113–162; BP diastolic 44–75; PULSE 93–100; RESP 18–20; O2SAT 95–96
[2023-02-09 05:22] LABS: HEMATOCRIT 34.2 % (36-48); MEAN CORPUSCULAR HEMOGLOBIN 27.9 pg (27.0-33.0); MEAN CORPUSCULAR VOLUME 84.4 fL (79-99); RED BLOOD CELL COUNT(AUTO) 4.05 MIL/uL (4.00-5.50); RED CELL DISTRIBUTION WIDTH 13.2 % (11.0-15.5); WHITE BLOOD COUNT (AUTO) 7.1 K/uL (4.8-10.8)
[2023-02-09 05:35] LABS: ALBUMIN 3.1 g/dL (3.5-5.0); CREATININE 1.1 mg/dL (0.5-1.5); POTASSIUM 4.5 mmol/L (3.5-5.1); TOTAL PROTEIN, SERUM 7.1 g/dL (6.0-8.3)
[2023-02-09 05:36] LABS: INR < 0.93 (0.85-1.15); PROTHROMBIN TIME 10.7 SEC (9.6-11.6)
[2023-02-09 05:38] LABS: PARTIAL THROMBOPLASTIN TIME 28.6 SEC (26.3-35.5)
[2023-02-09] MEDS: LEVOTHYROXINE 88 MCG TABLET PO SCH (06:36)
[2023-02-09] MEDS: INSULIN HUMULIN R 100 UNIT/ML 3ML SQ SCH ×4 (06:42→20:18)
[2023-02-09] MEDS: 0.9%NACL 1000ML 1,000 ML IV SCH ×3 (06:43→20:10)
[2023-02-09] MEDS: ASPIRIN 81 MG EC TAB PO SCH (08:19)
[2023-02-09] MEDS: LORATADINE 10 MG TABLET PO SCH (08:19)
[2023-02-09] MEDS: CYANOCOBALAMIN (VITAMIN B-12) 1,000 MCG TABLET PO SCH (08:19)
[2023-02-09] MEDS: FAMOTIDINE 20MG TAB PO SCH ×2 (08:19→20:06)
[2023-02-09] MEDS: BACLOFEN 20 MG PO SCH ×4 (08:21→20:05)
[2023-02-09] MEDS: PREGABALIN 150 MG PO SCH ×3 (08:21→20:06)
[2023-02-09] MEDS: Duloxetine HCl 60 MG PO SCH (08:21)
[2023-02-09] MEDS ORDERED: NON-FORMULARY MEDICATION 1 EACH (Cyanocobalamin (Vitamin B-12) (Vitamin B12) 1,000 MCG) PO SCH (09:00)
[2023-02-09] MEDS ORDERED: NON-FORMULARY MEDICATION 1 EACH (Levothyroxine Sodium (Levothyroxine) 88 MCG) PO SCH (09:00)
[2023-02-09] MEDS: CEFTRIAXONE 1G VIAL IVPB SCH (11:03)
[2023-02-09] MEDS: TRAMADOL HCL 50 MG TABLET PO PRN (12:52)
[2023-02-09] MEDS ORDERED: HYDRALAZINE 25MG TABLET PO PRN (13:00)
[2023-02-09] MEDS ORDERED: HYDROCODONE/ACETAMINOPHEN 5/325 MG TAB PO PRN (15:00)
[2023-02-09] MEDS ORDERED: HYDROMORPHONE 1 MG INJ IVP PRN (15:00)
[2023-02-09] MEDS: LISINOPRIL 2.5 MG TABLET PO SCH (20:06)
[2023-02-09] MEDS: ATORVASTATIN 40 MG TABLET PO SCH (20:06)
[2023-02-09] MEDS: ROPINIROLE HCL 1 MG TABLET PO SCH (20:06)
[2023-02-09] MEDS: METOCLOPRAMIDE 10 MG TABLET PO SCH (20:06)
[2023-02-10] VITALS (7 sets, daily range): BP systolic 103–138; BP diastolic 58–92; PULSE 89–99; RESP 20; O2SAT 98
[2023-02-10] MEDS: LEVOTHYROXINE 88 MCG TABLET PO SCH (06:09)
[2023-02-10] MEDS: INSULIN HUMULIN R 100 UNIT/ML 3ML SQ SCH ×3 (06:11→16:59)
[2023-02-10] MEDS: ACETAMINOPHEN 325 MG TAB PO PRN (07:48)
[2023-02-10] MEDS: ONDANSETRON 4MG INJ IV PRN (07:49)
[2023-02-10] MEDS: BACLOFEN 20 MG PO SCH ×3 (09:00→17:00)
[2023-02-10] MEDS: Duloxetine HCl 60 MG PO SCH (09:00)
[2023-02-10] MEDS: PREGABALIN 150 MG PO SCH ×2 (09:00→14:00)
[2023-02-10] MEDS: FAMOTIDINE 20MG TAB PO SCH (09:13)
[2023-02-10] MEDS: LORATADINE 10 MG TABLET PO SCH (09:13)
[2023-02-10] MEDS: ASPIRIN 81 MG EC TAB PO SCH (09:13)
[2023-02-10] MEDS: CYANOCOBALAMIN (VITAMIN B-12) 1,000 MCG TABLET PO SCH (09:17)
[2023-02-10] MEDS: 0.9%NACL 1000ML 1,000 ML IV SCH (09:18)
[2023-02-10] MEDS: CEFTRIAXONE 1G VIAL IVPB SCH (10:45)
== END 2023-02-10 20:25 | DRG 690 ==
LOC: EDH 20:26 → EDHIP 02-08 04:20 → 4BH 02-08 08:38
PROVIDERS: ADMIT Hospitalist; ATTEND Hospitalist
DX: N39.0 Urinary tract infection, site not specified (principal); M25.561 Pain in right knee; E11.9 Type 2 diabetes mellitus without complications; E78.5 Hyperlipidemia, unspecified; I10 Essential (primary) hypertension; E03.9 Hypothyroidism, unspecified; B96.4 Proteus (mirabilis) (morganii) as the cause of diseases classified elsewhere; D64.9 Anemia, unspecified; I25.10 Atherosclerotic heart disease of native coronary artery without angina pectoris; Z99.3 Dependence on wheelchair; Z95.1 Presence of aortocoronary bypass graft
CPT/HCPCS: 36415; 71045; 72190; 73552; 73562; 73590; 74018; 80048; 80053; 81001; 82948; 83036; 83605; 85025; 85027; 85610; 85730; 87077; 87088; 87186; 97039; G0378; J0696; J1815; J2405

== ENCOUNTER 2023-04-26 12:58 | Emergency (ER) | payer OTHER, MEDICARE ==
[~2023-04-26] VITALS: Ht 160 cm; Wt 74.8 kg
[~2023-04-26 12:58] MED LIST changes: -ASCO500C18 PO; -ATOR40TA69 PO; -CEPH500B PO; -DULO30CA52 PO; +DULO60CA64 PO; -INSU100V45 SQ; -LIRA0.6P SQ; +LISI2.5T13 PO; -MACR100 PO; +METO10TA3 PO; -PREG150C46 PO; +PREG150C47 PO; +ROSU20TA73 PO; -TRAM50TA4 PO
[2023-04-26] MEDS ORDERED: LACTATED RINGERS 1000ML 1,000 ML IV ONE (13:30)
[2023-04-26 14:15] LABS: BASOPHILS # (AUTO) 0.04 K/uL (0.00-0.20); BASOPHILS % (AUTO) 0.5 % (0.0-5.0); EOSINOPHILS # (AUTO) 0.14 K/uL (0.00-0.70); EOSINOPHILS % (AUTO) 1.6 % (0.0-8.0); HEMATOCRIT 34.4 % (36-48); IMMATURE GRANULOCYTE ABSOLUTE 0.07 K/uL (0-1); LYMPHOCYTES # (AUTO) 2.3 K/uL (1.0-4.8); LYMPHOCYTES % (AUTO) 26.1 % (21.0-51.0); MEAN CORPUSCULAR HEMOGLOBIN 27.5 pg (27.0-33.0); MEAN CORPUSCULAR HGB CONC 32.3 g/dL (32.0-36.0); MEAN CORPUSCULAR VOLUME 85.4 fL (79-99); MONOCYTES # (AUTO) 0.7 K/uL (0.1-1.0); MONOCYTES % (AUTO) 8.2 % (3.0-13.0); NEUTROPHILS # (AUTO) 5.6 K/uL (1.8-7.7); NEUTROPHILS % (AUTO) 62.8 % (40.0-77.0); PLATELET COUNT (AUTO) 325 K/uL (130-400); RED BLOOD CELL COUNT(AUTO) 4.03 MIL/uL (4.00-5.50); RED CELL DISTRIBUTION WIDTH 13.8 % (11.0-15.5); WHITE BLOOD COUNT (AUTO) 8.8 K/uL (4.8-10.8)
[2023-04-26 14:25] LABS: CREATININE 1.3 mg/dL (0.5-1.5); POTASSIUM 4.6 mmol/L (3.5-5.1)
[2023-04-26 14:26] LABS: INR < 0.93 (0.85-1.15); PROTHROMBIN TIME 10.7 SEC (9.6-11.6)
[2023-04-26 14:27] LABS: PARTIAL THROMBOPLASTIN TIME 27.9 SEC (26.3-35.5)
[2023-04-26 14:29] LABS: ALBUMIN 3.1 g/dL (3.5-5.0); BILIRUBIN,TOTAL 0.8 mg/dL (0.2-1.0); TOTAL PROTEIN, SERUM 7.1 g/dL (6.0-8.3)
[2023-04-26 14:31] LABS: APPEARANCE,URINE CLOUDY (CLEAR); BILIRUBIN,URINE NEGATIVE (NEGATIVE); COLOR,URINE YELLOW (YELLOW); GLUCOSE, URINE (UA) NEGATIVE (NEGATIVE); KETONES,URINE NEGATIVE (NEGATIVE); LEUKOCYTE ESTERASE ,URINE LARGE Leu/uL (NEGATIVE); NITRATE,URINE POSITIVE (NEGATIVE); OCCULT BLOOD,URINE LARGE (NEGATIVE); PROTEIN,URINE NEGATIVE (NEGATIVE); UROBILINOGEN,URINE 0.2 mg/dL (0.2-1.0)
[2023-04-26 14:33] LABS: ADD UA MICROSCOPIC YES
[2023-04-26 14:36] LABS: BACTERIA,URINE MOD /HPF (None Seen); MUCUS,URINE MOD LPF (None Seen); OTHER CASTS, URINE 20 /LPF (None Seen); RBC,URINE 26-50 /HPF (0-1); UNCLASSIFIED CRYSTAL 17 /HPF (None Seen); WBC CLUMP FEW /HPF (0-1); WBC,URINE 51-100 /HPF (0-1); YEAST,URINE BUDDING MOD /HPF (None Seen)
[2023-04-26] MEDS ORDERED: CEFTRIAXONE 2GM VIAL IVPB STA (14:48)
[2023-04-26 14:53] LABS: B-TYPE NATRIURETIC PEPTIDE 6 pg/mL (0-100)
[2023-04-26] MEDS ORDERED: CEPH500B PO (15:42)
[2023-04-26 23:13] VITALS: BP 142/67; PULSE 78; RESP 18; O2SAT 98
== END 2023-04-26 23:15 | disposition home or self-care (01) ==
LOC: EDH 12:58
DX: N39.0 Urinary tract infection, site not specified (principal); E86.0 Dehydration; E11.9 Type 2 diabetes mellitus without complications; E03.9 Hypothyroidism, unspecified; F17.200 Nicotine dependence, unspecified, uncomplicated; Z79.4 Long term (current) use of insulin; Z79.82 Long term (current) use of aspirin; Z79.890 Hormone replacement therapy; Z79.899 Other long term (current) drug therapy; Z95.1 Presence of aortocoronary bypass graft; Z79.01 Long term (current) use of anticoagulants
CPT/HCPCS: 99285; 96365; 71045; 96361; 82550; 83735; 84484; 80053; 83880; 85025; 85610; 85730; 87077; 87088; 87186; 81001; 36415; 93005; J7120; J0696

== ENCOUNTER 2023-04-29 02:28 | Emergency (ER) | payer OTHER, MEDICARE ==
[~2023-04-29 02:28] MED LIST changes: +CEPH500B PO
[2023-04-29 02:44] LABS: BASOPHILS # (AUTO) 0.04 K/uL (0.00-0.20); BASOPHILS % (AUTO) 0.6 % (0.0-5.0); EOSINOPHILS # (AUTO) 0.19 K/uL (0.00-0.70); EOSINOPHILS % (AUTO) 2.6 % (0.0-8.0); HEMATOCRIT 33.7 % (36-48); IMMATURE GRANULOCYTE ABSOLUTE 0.05 K/uL (0-1); LYMPHOCYTES # (AUTO) 2.2 K/uL (1.0-4.8); LYMPHOCYTES % (AUTO) 30.2 % (21.0-51.0); MEAN CORPUSCULAR HEMOGLOBIN 27.7 pg (27.0-33.0); MEAN CORPUSCULAR VOLUME 86.4 fL (79-99); MONOCYTES # (AUTO) 0.7 K/uL (0.1-1.0); NEUTROPHILS % (AUTO) 55.9 % (40.0-77.0); PLATELET COUNT (AUTO) 304 K/uL (130-400); WHITE BLOOD COUNT (AUTO) 7.2 K/uL (4.8-10.8)
[2023-04-29 02:53] LABS: CREATININE 1.7 mg/dL (0.5-1.5); POTASSIUM 4.5 mmol/L (3.5-5.1)
[2023-04-29 03:06] LABS: ALBUMIN 3.1 g/dL (3.5-5.0); BILIRUBIN,TOTAL 0.6 mg/dL (0.2-1.0)
[2023-04-29 03:09] LABS: B-TYPE NATRIURETIC PEPTIDE < 5 pg/mL (0-100)
[2023-04-29 04:57] VITALS: BP 123/61; PULSE 82; RESP 16; O2SAT 98
[2023-04-29 05:16] LABS: APPEARANCE,URINE CLOUDY (CLEAR); BILIRUBIN,URINE NEGATIVE (NEGATIVE); COLOR,URINE COLORLESS (YELLOW); GLUCOSE, URINE (UA) 50 mg/dL (NEGATIVE); KETONES,URINE NEGATIVE (NEGATIVE); LEUKOCYTE ESTERASE ,URINE 500 Leu/uL (NEGATIVE); NITRATE,URINE 2+ (NEGATIVE); PROTEIN,URINE NEGATIVE (NEGATIVE); UROBILINOGEN,URINE 0.2 mg/dL (0.2-1.0)
[2023-04-29 05:18] LABS: ADD UA MICROSCOPIC YES
[2023-04-29 05:24] LABS: BACTERIA,URINE RARE /HPF (None Seen); MUCUS,URINE RARE LPF (None Seen); WBC,URINE 51-100 /HPF (0-1); YEAST,URINE BUDDING MOD /HPF (None Seen)
[2023-04-29] MEDS ORDERED: NITROFURANTOIN MONOHYD/M-CRYST 100 MG CAPSULE PO ONE (05:30)
[2023-04-29] MEDS ORDERED: MACR100 PO (05:31)
[2023-04-29 05:53] LABS: APPEARANCE,URINE CLOUDY (CLEAR); BILIRUBIN,URINE NEGATIVE (NEGATIVE); COLOR,URINE COLORLESS (YELLOW); GLUCOSE, URINE (UA) 50 mg/dL (NEGATIVE); KETONES,URINE NEGATIVE (NEGATIVE); LEUKOCYTE ESTERASE ,URINE 500 Leu/uL (NEGATIVE); NITRATE,URINE NEGATIVE (NEGATIVE); OCCULT BLOOD,URINE SMALL (NEGATIVE); PROTEIN,URINE NEGATIVE (NEGATIVE); UROBILINOGEN,URINE 0.2 mg/dL (0.2-1.0)
[2023-04-29 05:54] LABS: ADD UA MICROSCOPIC YES
[2023-04-29 05:56] LABS: BACTERIA,URINE RARE /HPF (None Seen); SQUAMOUS EPITHELIAL CELL,UR RARE /HPF (0-2); WBC,URINE TNTC /HPF (0-1); YEAST,URINE BUDDING MOD /HPF (None Seen)
[2023-04-29 08:00] LABS: MAGNESIUM 2.1 mg/dL (1.80-2.40); THYROID STIMULATING HORMONE 2.27 uIU/mL (0.36-3.74)
== END 2023-04-29 08:52 | disposition home or self-care (01) ==
LOC: EDH 02:28
DX: N39.0 Urinary tract infection, site not specified (principal); E11.9 Type 2 diabetes mellitus without complications; E03.9 Hypothyroidism, unspecified; I10 Essential (primary) hypertension; F17.200 Nicotine dependence, unspecified, uncomplicated; Z79.4 Long term (current) use of insulin; Z79.82 Long term (current) use of aspirin; Z79.890 Hormone replacement therapy; Z79.899 Other long term (current) drug therapy; Z95.1 Presence of aortocoronary bypass graft
CPT/HCPCS: 36415; 80053; 81001; 82550; 83735; 83880; 84443; 84484; 85025; 87070; 87076; 87077; 87186; 93005

== ENCOUNTER 2023-05-18 13:36 | Emergency (ER) | payer OTHER, MEDICARE ==
[~2023-05-18] VITALS: Ht 160 cm; Wt 92.1 kg
[~2023-05-18 13:36] MED LIST changes: +MACR100 PO
[2023-05-18 14:21] LABS: BASOPHILS # (AUTO) 0.03 K/uL (0.00-0.20); BASOPHILS % (AUTO) 0.4 % (0.0-5.0); EOSINOPHILS # (AUTO) 0.24 K/uL (0.00-0.70); HEMATOCRIT 35.5 % (36-48); IMMATURE GRANULOCYTE ABSOLUTE 0.03 K/uL (0-1); LYMPHOCYTES # (AUTO) 1.5 K/uL (1.0-4.8); LYMPHOCYTES % (AUTO) 18.3 % (21.0-51.0); MEAN CORPUSCULAR HEMOGLOBIN 27.4 pg (27.0-33.0); MEAN CORPUSCULAR HGB CONC 31.5 g/dL (32.0-36.0); MEAN CORPUSCULAR VOLUME 86.8 fL (79-99); MONOCYTES # (AUTO) 0.6 K/uL (0.1-1.0); MONOCYTES % (AUTO) 7.3 % (3.0-13.0); NEUTROPHILS # (AUTO) 5.6 K/uL (1.8-7.7); NEUTROPHILS % (AUTO) 70.6 % (40.0-77.0); PLATELET COUNT (AUTO) 272 K/uL (130-400); RED BLOOD CELL COUNT(AUTO) 4.09 MIL/uL (4.00-5.50); RED CELL DISTRIBUTION WIDTH 14.3 % (11.0-15.5)
[2023-05-18 14:48] LABS: POTASSIUM 4.5 mmol/L (3.5-5.1)
[2023-05-18 15:02] LABS: APPEARANCE,URINE CLOUDY (CLEAR); BILIRUBIN,URINE NEGATIVE (NEGATIVE); COLOR,URINE LIGHT-YELLOW (YELLOW); GLUCOSE, URINE (UA) NEGATIVE (NEGATIVE); KETONES,URINE NEGATIVE (NEGATIVE); LEUKOCYTE ESTERASE ,URINE 500 Leu/uL (NEGATIVE); NITRATE,URINE NEGATIVE (NEGATIVE); OCCULT BLOOD,URINE MODERATE (NEGATIVE); PH,URINE 7.5 (5.0-8.0); PROTEIN,URINE 20 mg/dL (NEGATIVE); UROBILINOGEN,URINE 0.2 mg/dL (0.2-1.0)
[2023-05-18 15:02] LABS: ALBUMIN 3.1 g/dL (3.5-5.0); BILIRUBIN,TOTAL 0.9 mg/dL (0.2-1.0); TOTAL PROTEIN, SERUM 7.2 g/dL (6.0-8.3)
[2023-05-18 15:09] LABS: ADD UA MICROSCOPIC YES
[2023-05-18 15:12] VITALS: BP 111/60; PULSE 80; RESP 18; O2SAT 96
[2023-05-18 15:17] LABS: BACTERIA,URINE RARE /HPF (None Seen); MUCUS,URINE RARE LPF (None Seen); OTHER CASTS, URINE 1 /LPF (None Seen); RBC,URINE 26-50 /HPF (0-1); SQUAMOUS EPITHELIAL CELL,UR RARE /HPF (0-2); WBC,URINE 26-50 /HPF (0-1); YEAST,URINE BUDDING FEW /HPF (None Seen); YEAST,URINE HYPHAE FEW /HPF (None Seen)
[2023-05-18] MEDS ORDERED: CEFTRIAXONE 1G VIAL IVPB ONE (17:30)
[2023-05-18] MEDS ORDERED: CEPH500T PO (18:00)
== END 2023-05-18 19:18 | disposition home or self-care (01) ==
LOC: EDH 13:36
DX: N39.0 Urinary tract infection, site not specified (principal); E11.9 Type 2 diabetes mellitus without complications; E03.9 Hypothyroidism, unspecified; I10 Essential (primary) hypertension; F17.200 Nicotine dependence, unspecified, uncomplicated; Z79.4 Long term (current) use of insulin; Z79.82 Long term (current) use of aspirin; Z79.890 Hormone replacement therapy; Z79.899 Other long term (current) drug therapy; Z96.0 Presence of urogenital implants; Z95.1 Presence of aortocoronary bypass graft
CPT/HCPCS: 99284; 96374; 84484; 80053; 85025; 87077; 87088; 87186; 81001; 36415; 93005; J0696

== ENCOUNTER 2023-06-16 19:27 | Emergency (ER) | payer OTHER, MEDICARE ==
[~2023-06-16] VITALS: Ht 160 cm; Wt 95.7 kg
[~2023-06-16 19:27] MED LIST changes: +CEPH500T PO
[2023-06-16 20:35] LABS: APPEARANCE,URINE CLEAR (CLEAR); BILIRUBIN,URINE NEGATIVE (NEGATIVE); COLOR,URINE LIGHT-YELLOW (YELLOW); GLUCOSE, URINE (UA) NEGATIVE (NEGATIVE); KETONES,URINE NEGATIVE (NEGATIVE); LEUKOCYTE ESTERASE ,URINE 500 Leu/uL (NEGATIVE); NITRATE,URINE NEGATIVE (NEGATIVE); OCCULT BLOOD,URINE SMALL (NEGATIVE); PH,URINE 5.5 (5.0-8.0); PROTEIN,URINE NEGATIVE (NEGATIVE); UROBILINOGEN,URINE 0.2 mg/dL (0.2-1.0)
[2023-06-16 20:37] LABS: ADD UA MICROSCOPIC YES
[2023-06-16 20:38] LABS: BACTERIA,URINE RARE /HPF (None Seen); MUCUS,URINE RARE LPF (None Seen)
[2023-06-16 20:43] LABS: BASOPHILS # (AUTO) 0.03 K/uL (0.00-0.20); BASOPHILS % (AUTO) 0.5 % (0.0-5.0); EOSINOPHILS # (AUTO) 0.23 K/uL (0.00-0.70); EOSINOPHILS % (AUTO) 3.5 % (0.0-8.0); HEMATOCRIT 33.7 % (36-48); IMMATURE GRANULOCYTE ABSOLUTE 0.08 K/uL (0-1); LYMPHOCYTES % (AUTO) 15.1 % (21.0-51.0); MEAN CORPUSCULAR HEMOGLOBIN 27.3 pg (27.0-33.0); MEAN CORPUSCULAR HGB CONC 32.3 g/dL (32.0-36.0); MEAN CORPUSCULAR VOLUME 84.5 fL (79-99); MONOCYTES # (AUTO) 0.8 K/uL (0.1-1.0); MONOCYTES % (AUTO) 11.7 % (3.0-13.0); NEUTROPHILS # (AUTO) 4.4 K/uL (1.8-7.7); PLATELET COUNT (AUTO) 243 K/uL (130-400); RED BLOOD CELL COUNT(AUTO) 3.99 MIL/uL (4.00-5.50); RED CELL DISTRIBUTION WIDTH 14.1 % (11.0-15.5); WHITE BLOOD COUNT (AUTO) 6.5 K/uL (4.8-10.8)
[2023-06-16 20:58] LABS: ALBUMIN 3.1 g/dL (3.5-5.0); BILIRUBIN,TOTAL 0.8 mg/dL (0.2-1.0); CREATININE 1.1 mg/dL (0.5-1.5); POTASSIUM 3.7 mmol/L (3.5-5.1); TOTAL PROTEIN, SERUM 6.8 g/dL (6.0-8.3)
[2023-06-16 21:20] LABS: INR < 0.93 (0.85-1.15); PROTHROMBIN TIME 10.5 SEC (9.6-11.6)
[2023-06-16 21:22] LABS: PARTIAL THROMBOPLASTIN TIME 29.2 SEC (26.3-35.5)
[2023-06-16] MEDS ORDERED: CEFTRIAXONE 1G VIAL IVPB ONE (22:00)
[2023-06-16] MEDS ORDERED: CEFU500T67 PO (22:20)
[2023-06-16 23:55] VITALS: BP 132/77; PULSE 101; RESP 20; O2SAT 99
[2023-06-16 23:59] VITALS: TEMP 100.4
[2023-06-17] MEDS ORDERED: ACETAMINOPHEN 325 MG TAB PO ONE
== END 2023-06-17 00:08 | disposition home or self-care (01) ==
LOC: EDH 19:27
DX: N39.0 Urinary tract infection, site not specified (principal); E03.9 Hypothyroidism, unspecified; E11.9 Type 2 diabetes mellitus without complications; F17.200 Nicotine dependence, unspecified, uncomplicated; Z79.4 Long term (current) use of insulin; Z79.82 Long term (current) use of aspirin; Z79.890 Hormone replacement therapy; Z79.899 Other long term (current) drug therapy; Z95.1 Presence of aortocoronary bypass graft; Z79.01 Long term (current) use of anticoagulants; Z86.2 Personal history of diseases of the blood and blood-forming organs and certain disorders involving the immune mechanism
CPT/HCPCS: 99284; 82550; 84484; 80053; 83880; 85025; 85610; 85730; 87040 ×2; 87077; 87088; 87186; 83605; 81001; 36415; 71045; 96365; J0696

== ENCOUNTER 2023-09-14 15:02 | Emergency (ER) | payer OTHER ==
[~2023-09-14] VITALS: Ht 165.1 cm; Wt 90.7 kg
[~2023-09-14 15:02] MED LIST changes: +CEFU500T67 PO; -CEPH500B PO; -CEPH500T PO; -MACR100 PO
[2023-09-14 16:07] LABS: BASOPHILS # (AUTO) 0.06 K/uL (0.00-0.20); BASOPHILS % (AUTO) 0.8 % (0.0-5.0); EOSINOPHILS # (AUTO) 0.33 K/uL (0.00-0.70); EOSINOPHILS % (AUTO) 4.2 % (0.0-8.0); HEMATOCRIT 37.6 % (36-48); IMMATURE GRANULOCYTE ABSOLUTE 0.05 K/uL (0-1); LYMPHOCYTES # (AUTO) 2.2 K/uL (1.0-4.8); MEAN CORPUSCULAR HEMOGLOBIN 27.1 pg (27.0-33.0); MEAN CORPUSCULAR HGB CONC 31.6 g/dL (32.0-36.0); MEAN CORPUSCULAR VOLUME 85.6 fL (79-99); MONOCYTES # (AUTO) 0.7 K/uL (0.1-1.0); MONOCYTES % (AUTO) 8.5 % (3.0-13.0); NEUTROPHILS # (AUTO) 4.5 K/uL (1.8-7.7); NEUTROPHILS % (AUTO) 57.9 % (40.0-77.0); PLATELET COUNT (AUTO) 295 K/uL (130-400); RED BLOOD CELL COUNT(AUTO) 4.39 MIL/uL (4.00-5.50); RED CELL DISTRIBUTION WIDTH 14.2 % (11.0-15.5); WHITE BLOOD COUNT (AUTO) 7.8 K/uL (4.8-10.8)
[2023-09-14 16:32] LABS: APPEARANCE,URINE CLEAR (CLEAR); BILIRUBIN,URINE NEGATIVE (NEGATIVE); COLOR,URINE LIGHT-YELLOW (YELLOW); GLUCOSE, URINE (UA) NEGATIVE (NEGATIVE); KETONES,URINE NEGATIVE (NEGATIVE); LEUKOCYTE ESTERASE ,URINE 250 Leu/uL (NEGATIVE); NITRATE,URINE NEGATIVE (NEGATIVE); OCCULT BLOOD,URINE SMALL (NEGATIVE); PROTEIN,URINE NEGATIVE (NEGATIVE); UROBILINOGEN,URINE 0.2 mg/dL (0.2-1.0)
[2023-09-14 16:35] LABS: ALBUMIN 3.3 g/dL (3.5-5.0); BILIRUBIN,TOTAL 0.8 mg/dL (0.2-1.0); CREATININE 1.1 mg/dL (0.5-1.0); POTASSIUM 4.2 mmol/L (3.5-5.1); TOTAL PROTEIN, SERUM 7.2 g/dL (6.0-8.3)
[2023-09-14 16:37] LABS: ADD UA MICROSCOPIC YES
[2023-09-14 16:42] LABS: BACTERIA,URINE RARE /HPF (None Seen); MUCUS,URINE RARE LPF (None Seen); SQUAMOUS EPITHELIAL CELL,UR RARE /HPF (0-2)
[2023-09-14] MEDS ORDERED: AMOX1TAB16 PO (17:11)
[2023-09-14] MEDS: AMOX/CLAV 875/125MG TAB PO ONE (17:18)
[2023-09-14 19:15] VITALS: BP 119/52; PULSE 82; RESP 16; O2SAT 95
== END 2023-09-14 20:36 | disposition left against medical advice (07) ==
LOC: EDH 15:02
DX: N39.0 Urinary tract infection, site not specified (principal); E86.0 Dehydration
CPT/HCPCS: 36415; 80053; 81001; 82948; 84484; 85025; 87088; 93005

== ENCOUNTER 2023-09-28 13:26 | Emergency (ER) | payer OTHER ==
[~2023-09-28] VITALS: Ht 160 cm; Wt 89.4 kg
[~2023-09-28 13:26] MED LIST changes: +AMOX1TAB16 PO
[2023-09-28 14:00] LABS: BASOPHILS # (AUTO) 0.03 K/uL (0.00-0.20); BASOPHILS % (AUTO) 0.4 % (0.0-5.0); EOSINOPHILS # (AUTO) 0.29 K/uL (0.00-0.70); EOSINOPHILS % (AUTO) 3.7 % (0.0-8.0); HEMATOCRIT 34.7 % (36-48); IMMATURE GRANULOCYTE ABSOLUTE 0.04 K/uL (0-1); LYMPHOCYTES # (AUTO) 2.1 K/uL (1.0-4.8); LYMPHOCYTES % (AUTO) 26.3 % (21.0-51.0); MEAN CORPUSCULAR HGB CONC 33.1 g/dL (32.0-36.0); MEAN CORPUSCULAR VOLUME 84.4 fL (79-99); MONOCYTES # (AUTO) 0.8 K/uL (0.1-1.0); MONOCYTES % (AUTO) 9.6 % (3.0-13.0); NEUTROPHILS # (AUTO) 4.7 K/uL (1.8-7.7); NEUTROPHILS % (AUTO) 59.5 % (40.0-77.0); PLATELET COUNT (AUTO) 286 K/uL (130-400); RED BLOOD CELL COUNT(AUTO) 4.11 MIL/uL (4.00-5.50); RED CELL DISTRIBUTION WIDTH 14.5 % (11.0-15.5); WHITE BLOOD COUNT (AUTO) 7.8 K/uL (4.8-10.8)
[2023-09-28 14:08] LABS: CREATININE 1.2 mg/dL (0.5-1.0); POTASSIUM 4.2 mmol/L (3.5-5.1)
[2023-09-28 14:13] LABS: ALBUMIN 3.2 g/dL (3.5-5.0); BILIRUBIN,TOTAL 0.9 mg/dL (0.2-1.0)
[2023-09-28 14:28] LABS: APPEARANCE,URINE CLOUDY (CLEAR); BILIRUBIN,URINE NEGATIVE (NEGATIVE); COLOR,URINE LIGHT-YELLOW (YELLOW); GLUCOSE, URINE (UA) NEGATIVE (NEGATIVE); KETONES,URINE NEGATIVE (NEGATIVE); LEUKOCYTE ESTERASE ,URINE 500 Leu/uL (NEGATIVE); NITRATE,URINE NEGATIVE (NEGATIVE); OCCULT BLOOD,URINE MODERATE (NEGATIVE); PROTEIN,URINE NEGATIVE (NEGATIVE); UROBILINOGEN,URINE 0.2 mg/dL (0.2-1.0)
[2023-09-28 14:34] LABS: ADD UA MICROSCOPIC YES
[2023-09-28 14:39] LABS: BACTERIA,URINE RARE /HPF (None Seen); MUCUS,URINE RARE LPF (None Seen); SQUAMOUS EPITHELIAL CELL,UR RARE /HPF (0-2); WBC CLUMP MOD /HPF (0-1); WBC,URINE TNTC /HPF (0-1); YEAST,URINE BUDDING RARE /HPF (None Seen)
[2023-09-28 16:19] VITALS: BP 118/61; PULSE 80; RESP 16; O2SAT 100
[2023-09-28] MEDS ORDERED: SULF1TAB42 PO (16:23)
[2023-09-28] MEDS ORDERED: CEFTRIAXONE 1G VIAL IVPB SCH (16:30)
== END 2023-09-28 17:45 | disposition home or self-care (01) ==
LOC: EDH 13:26
DX: N39.0 Urinary tract infection, site not specified (principal); E03.9 Hypothyroidism, unspecified; F17.200 Nicotine dependence, unspecified, uncomplicated; Z79.82 Long term (current) use of aspirin; Z79.84 Long term (current) use of oral hypoglycemic drugs; Z79.899 Other long term (current) drug therapy; Z98.890 Other specified postprocedural states
CPT/HCPCS: 99285; 71045; 84484; 80053; 85025; 87040 ×2; 87077; 87088; 87186; 83605; 81001; 36415; 93005; J0696

== ENCOUNTER 2023-12-10 14:13 | Emergency (ER) | payer OTHER ==
[~2023-12-10] VITALS: Ht 160 cm; Wt 88.9 kg
[~2023-12-10 14:13] MED LIST changes: +SULF1TAB42 PO
[2023-12-10 14:58] LABS: BASOPHILS # (AUTO) 0.04 K/uL (0.00-0.20); BASOPHILS % (AUTO) 0.5 % (0.0-5.0); EOSINOPHILS # (AUTO) 0.03 K/uL (0.00-0.70); EOSINOPHILS % (AUTO) 0.3 % (0.0-8.0); HEMATOCRIT 35.9 % (36-48); IMMATURE GRANULOCYTE ABSOLUTE 0.05 K/uL (0-1); LYMPHOCYTES # (AUTO) 1.4 K/uL (1.0-4.8); LYMPHOCYTES % (AUTO) 15.3 % (21.0-51.0); MEAN CORPUSCULAR HEMOGLOBIN 27.4 pg (27.0-33.0); MEAN CORPUSCULAR HGB CONC 32.9 g/dL (32.0-36.0); MEAN CORPUSCULAR VOLUME 83.5 fL (79-99); MONOCYTES # (AUTO) 0.5 K/uL (0.1-1.0); MONOCYTES % (AUTO) 5.3 % (3.0-13.0); NEUTROPHILS # (AUTO) 6.9 K/uL (1.8-7.7); PLATELET COUNT (AUTO) 298 K/uL (130-400); WHITE BLOOD COUNT (AUTO) 8.9 K/uL (4.8-10.8)
[2023-12-10 15:02] LABS: APPEARANCE,URINE CLOUDY (CLEAR); BILIRUBIN,URINE NEGATIVE (NEGATIVE); COLOR,URINE YELLOW (YELLOW); GLUCOSE, URINE (UA) NEGATIVE (NEGATIVE); KETONES,URINE NEGATIVE (NEGATIVE); LEUKOCYTE ESTERASE ,URINE 500 Leu/uL (NEGATIVE); NITRATE,URINE NEGATIVE (NEGATIVE); PH,URINE 6.5 (5.0-8.0); PROTEIN,URINE 30 mg/dL (NEGATIVE); UROBILINOGEN,URINE 0.2 mg/dL (0.2-1.0)
[2023-12-10] MEDS: ONDANSETRON 4MG INJ IV ONE ×2 (15:06→17:01)
[2023-12-10 15:14] LABS: BACTERIA,URINE RARE /HPF (None Seen); MUCUS,URINE RARE LPF (None Seen); WBC,URINE 26-50 /HPF (0-1); YEAST,URINE BUDDING FEW /HPF (None Seen); YEAST,URINE HYPHAE RARE /HPF (None Seen)
[2023-12-10 15:18] LABS: CREATININE 1.1 mg/dL (0.5-1.0); POTASSIUM 4.4 mmol/L (3.5-5.1)
[2023-12-10 15:22] LABS: ALBUMIN 3.6 g/dL (3.5-5.0); BILIRUBIN,TOTAL 0.9 mg/dL (0.2-1.0); TOTAL PROTEIN, SERUM 7.6 g/dL (6.0-8.3)
[2023-12-10] MEDS: TRAMADOL HCL 50 MG TABLET PO ONE (15:38)
[2023-12-10] MEDS: CEFTRIAXONE 1G VIAL IVPB ONE (16:59)
[2023-12-10] MEDS: 0.9%NACL 1000ML 1,000 ML IV ONE (16:59)
[2023-12-10 17:05] VITALS: BP 159/69; PULSE 78; RESP 16; O2SAT 97
[2023-12-10] MEDS ORDERED: CEFD300C3 PO (17:33)
[2023-12-10] MEDS ORDERED: ONDA-243 PO (17:33)
== END 2023-12-10 18:02 | disposition home or self-care (01) ==
LOC: EDH 14:13
DX: N39.0 Urinary tract infection, site not specified (principal); I10 Essential (primary) hypertension; E11.9 Type 2 diabetes mellitus without complications; E78.00 Pure hypercholesterolemia, unspecified; F17.200 Nicotine dependence, unspecified, uncomplicated; Z79.82 Long term (current) use of aspirin; Z79.899 Other long term (current) drug therapy; Z98.890 Other specified postprocedural states; Z88.8 Allergy status to other drugs, medicaments and biological substances
CPT/HCPCS: 99285; 96365; 71045; 96375; 84484; 80053; 83690; 85025; 87086 ×2; 87186; 81001 ×2; 36415; 96376; 93005; J0696; J2405 ×2

== ENCOUNTER 2024-03-13 15:22 | Inpatient (IN) | payer OTHER ==
[~2024-03-13] VITALS: Ht 160 cm; Wt 101.7 kg
[~2024-03-13 15:22] MED LIST changes: +CEFD300C3 PO; +ONDA-243 PO
[2024-03-13 15:49] LABS: BASOPHILS # (AUTO) 0.04 K/uL (0.00-0.20); BASOPHILS % (AUTO) 0.6 % (0.0-5.0); EOSINOPHILS # (AUTO) 0.28 K/uL (0.00-0.70); EOSINOPHILS % (AUTO) 4.3 % (0.0-8.0); HEMATOCRIT 33.4 % (36-48); IMMATURE GRANULOCYTE ABSOLUTE 0.05 K/uL (0-1); LYMPHOCYTES # (AUTO) 1.8 K/uL (1.0-4.8); LYMPHOCYTES % (AUTO) 28.5 % (21.0-51.0); MEAN CORPUSCULAR HEMOGLOBIN 27.5 pg (27.0-33.0); MEAN CORPUSCULAR HGB CONC 31.7 g/dL (32.0-36.0); MEAN CORPUSCULAR VOLUME 86.5 fL (79-99); MONOCYTES # (AUTO) 0.5 K/uL (0.1-1.0); MONOCYTES % (AUTO) 7.3 % (3.0-13.0); NEUTROPHILS # (AUTO) 3.8 K/uL (1.8-7.7); NEUTROPHILS % (AUTO) 58.5 % (40.0-77.0); PLATELET COUNT (AUTO) 290 K/uL (130-400); RED BLOOD CELL COUNT(AUTO) 3.86 MIL/uL (4.00-5.50); RED CELL DISTRIBUTION WIDTH 14.5 % (11.0-15.5); WHITE BLOOD COUNT (AUTO) 6.5 K/uL (4.8-10.8)
[2024-03-13 17:05] LABS: CREATININE 1.2 mg/dL (0.5-1.0); POTASSIUM 4.5 mmol/L (3.5-5.1)
[2024-03-13] MEDS ORDERED: ketOROlac 15MG/ML VIAL (15MG/ML) IM ONE (18:00)
[2024-03-13 18:12] LABS: INFLUENZA TYPE A Negative For Type A (NEGATIVE); INFLUENZA TYPE B Negative For Type B (NEGATIVE)
[2024-03-13 18:13] LABS: COVID19 (SARS ANTIGEN RAPID) PRESUMPTIVE NEGATIVE (NEGATIVE)
[2024-03-13] MEDS: 0.9% NACL 500ML IV.SOLN 500 ML IV ONE (18:39)
[2024-03-13] MEDS: pregABALin 100 MG CAPSULE PO ONE (18:40)
[2024-03-13] MEDS: ketOROlac 15MG/ML VIAL (15MG/ML) IV ONE (18:43)
[2024-03-13 18:52] LABS: APPEARANCE,URINE CLOUDY (CLEAR); BILIRUBIN,URINE NEGATIVE (NEGATIVE); COLOR,URINE LIGHT-ORANGE (YELLOW); GLUCOSE, URINE (UA) NEGATIVE (NEGATIVE); KETONES,URINE NEGATIVE (NEGATIVE); LEUKOCYTE ESTERASE ,URINE 500 Leu/uL (NEGATIVE); NITRATE,URINE NEGATIVE (NEGATIVE); OCCULT BLOOD,URINE LARGE (NEGATIVE); PH,URINE 6.5 (5.0-8.0); PROTEIN,URINE 10 mg/dL (NEGATIVE); UROBILINOGEN,URINE 0.2 mg/dL (0.2-1.0)
[2024-03-13 18:58] LABS: ADD UA MICROSCOPIC YES
[2024-03-13 19:10] LABS: MUCUS,URINE RARE LPF (None Seen); WBC CLUMP MANY /HPF (0-1); WBC,URINE TNTC /HPF (0-1)
[2024-03-13] MEDS: ceFEPime HCL 1 GM VIAL IVPB SCH (19:29)
[2024-03-13] MEDS ORDERED: hydrALAZine 20MG/ML VIAL IV PRN (20:00)
[2024-03-13] MEDS ORDERED: TEMAZepam 15 MG CAPSULE PO PRN (20:00)
[2024-03-13] MEDS ORDERED: ALBUTEROL 0.083% 2.5 MG/3 ML INH IH PRN (20:00)
[2024-03-13] MEDS ORDERED: acetaMINOPHEN 650 MG SUPPOSITORY RC PRN (20:00)
[2024-03-13] MEDS: LACTATED RINGERS 1000ML 1,000 ML IV SCH (20:51)
[2024-03-13] MEDS: INSULIN humuLIN R 100 UNIT/ML 3ML SQ SCH (21:00)
[2024-03-13] MEDS: HYDROcodone/APAP 5/325 1 TAB TABLET PO PRN (21:45)
[2024-03-13 22:23] VITALS: PULSE 93; RESP 20; O2SAT 97
[2024-03-13] MEDS: IpraTROPium 0.5 MG/2.5 ML INH IH SCH (22:23)
[2024-03-14] VITALS (16 sets, daily range): BP systolic 128–163; BP diastolic 62–85; PULSE 75–101; RESP 18–22; TEMP 97.1–98.8; O2SAT 95–98
[2024-03-14] MEDS ORDERED: 0.9%NACL 50ML IV SCH (00:01)
[2024-03-14] MEDS: IpraTROPium 0.5 MG/2.5 ML INH IH SCH (03:00)
[2024-03-14] MEDS: doCUSate SODIUM 100 MG CAP PO ONE ×2 (03:48→20:18)
[2024-03-14] MEDS: ZOSYN 3.375GM +NS 50ML IVPB SCH (04:34)
[2024-03-14 06:57] LABS: HEMATOCRIT 33.9 % (36-48); MEAN CORPUSCULAR HEMOGLOBIN 27.7 pg (27.0-33.0); MEAN CORPUSCULAR HGB CONC 31.9 g/dL (32.0-36.0); MEAN CORPUSCULAR VOLUME 86.9 fL (79-99); RED BLOOD CELL COUNT(AUTO) 3.9 MIL/uL (4.00-5.50); RED CELL DISTRIBUTION WIDTH 14.5 % (11.0-15.5); WHITE BLOOD COUNT (AUTO) 6.4 K/uL (4.8-10.8)
[2024-03-14 07:04] LABS: HEMOGLOBIN A1C 6.4 % (4.0-6.0)
[2024-03-14 07:22] LABS: CREATININE 1.2 mg/dL (0.5-1.0); PHOSPHORUS 4.2 mg/dL (2.5-4.9); POTASSIUM 4.3 mmol/L (3.5-5.1); THYROID STIMULATING HORMONE 4.75 uIU/mL (0.36-3.74)
[2024-03-14 08:22] LABS: MAGNESIUM 2.2 mg/dL (1.80-2.40)
[2024-03-14] MEDS: PANTOPrazole 40 MG/VIAL IVP SCH (08:41)
[2024-03-14] MEDS: ENOXAPARIN SODIUM 40 MG/0.4 ML SYRINGE SQ SCH (08:43)
[2024-03-14] MEDS ORDERED: PHARMACY COMMUNICATION MISC SCH (09:00)
[2024-03-14] MEDS ORDERED: AMIT25TA9 PO (15:23)
[2024-03-14] MEDS ORDERED: INSU100V45 SQ ×3 (15:23)
[2024-03-14] MEDS ORDERED: INSU100V37 SQ (15:23)
[2024-03-14] MEDS ORDERED: LEVO100C4 PO (15:23)
[2024-03-14] MEDS ORDERED: FAMO20TA8 PO (15:23)
[2024-03-14] MEDS ORDERED: TRAM50TA4 PO (15:23)
[2024-03-14] MEDS ORDERED: LEVO88CA4 PO (15:23)
[2024-03-14] MEDS ORDERED: ERGO500093 PO (15:23)
[2024-03-14] MEDS ORDERED: METO10TA3 PO (15:23)
[2024-03-14] MEDS: ondanSETRON 4MG INJ IVP PRN (20:30)
[2024-03-14] MEDS: BALSAM PERU/CASTOR OIL 60 GM TUBE TP SCH (20:32)
[2024-03-15] VITALS (11 sets, daily range): BP systolic 130–163; BP diastolic 64–83; PULSE 83–100; RESP 18–20; TEMP 97.9–98.9; O2SAT 94–97
[2024-03-15 05:09] LABS: BASOPHILS # (AUTO) 0.04 K/uL (0.00-0.20); BASOPHILS % (AUTO) 0.3 % (0.0-5.0); EOSINOPHILS # (AUTO) 0.04 K/uL (0.00-0.70); EOSINOPHILS % (AUTO) 0.3 % (0.0-8.0); HEMATOCRIT 34.3 % (36-48); IMMATURE GRANULOCYTE ABSOLUTE 0.06 K/uL (0-1); LYMPHOCYTES # (AUTO) 2.1 K/uL (1.0-4.8); LYMPHOCYTES % (AUTO) 16.2 % (21.0-51.0); MEAN CORPUSCULAR HEMOGLOBIN 27.6 pg (27.0-33.0); MEAN CORPUSCULAR HGB CONC 32.1 g/dL (32.0-36.0); MEAN CORPUSCULAR VOLUME 86.2 fL (79-99); MONOCYTES # (AUTO) 0.8 K/uL (0.1-1.0); MONOCYTES % (AUTO) 6.2 % (3.0-13.0); NEUTROPHILS # (AUTO) 9.7 K/uL (1.8-7.7); NEUTROPHILS % (AUTO) 76.5 % (40.0-77.0); PLATELET COUNT (AUTO) 288 K/uL (130-400); RED BLOOD CELL COUNT(AUTO) 3.98 MIL/uL (4.00-5.50); RED CELL DISTRIBUTION WIDTH 14.4 % (11.0-15.5); WHITE BLOOD COUNT (AUTO) 12.6 K/uL (4.8-10.8)
[2024-03-15 05:26] LABS: ALBUMIN 2.8 g/dL (3.5-5.0); BILIRUBIN,TOTAL 1.2 mg/dL (0.2-1.0); CREATININE 1.1 mg/dL (0.5-1.0); POTASSIUM 4.4 mmol/L (3.5-5.1); TOTAL PROTEIN, SERUM 6.7 g/dL (6.0-8.3)
[2024-03-15 05:29] LABS: B-TYPE NATRIURETIC PEPTIDE 27 pg/mL (0-100)
[2024-03-15] MEDS: levoTHYROxine 88 MCG TABLET PO SCH (06:54)
[2024-03-15] MEDS: polyETHYLene GLYCol 3350 17 GM POWD.PACK PO SCH (08:55)
[2024-03-15] MEDS ORDERED: PREG150C PO (11:22)
[2024-03-15] MEDS: BACLOFEN 20 MG PO SCH (13:00)
[2024-03-15] MEDS: pregABALin 75 MG CAPSULE PO SCH (13:29)
[2024-03-15] MEDS: BACLOFEN 10 MG TABLET PO SCH (18:23)
[2024-03-15] MEDS: ropiNIRole HCL 1 MG TABLET PO SCH (20:57)
[2024-03-15] MEDS: AMITRIPTYLINE 25 MG TABLET PO SCH (20:57)
[2024-03-16] VITALS (13 sets, daily range): BP systolic 126–169; BP diastolic 66–85; PULSE 67–96; RESP 17–20; TEMP 97.5–98.7; O2SAT 95–98
[2024-03-16] MEDS: LACTULOSE 20 GM/30 ML UDCUP PO PRN (06:23)
[2024-03-16 10:21] LABS: BASOPHILS # (AUTO) 0.04 K/uL (0.00-0.20); BASOPHILS % (AUTO) 0.3 % (0.0-5.0); EOSINOPHILS # (AUTO) 0.14 K/uL (0.00-0.70); EOSINOPHILS % (AUTO) 1.1 % (0.0-8.0); HEMATOCRIT 34.8 % (36-48); IMMATURE GRANULOCYTE ABSOLUTE 0.05 K/uL (0-1); LYMPHOCYTES # (AUTO) 1.7 K/uL (1.0-4.8); LYMPHOCYTES % (AUTO) 13.3 % (21.0-51.0); MEAN CORPUSCULAR HEMOGLOBIN 27.5 pg (27.0-33.0); MEAN CORPUSCULAR HGB CONC 31.9 g/dL (32.0-36.0); MEAN CORPUSCULAR VOLUME 86.1 fL (79-99); MONOCYTES # (AUTO) 0.8 K/uL (0.1-1.0); MONOCYTES % (AUTO) 6.7 % (3.0-13.0); NEUTROPHILS # (AUTO) 9.7 K/uL (1.8-7.7); NEUTROPHILS % (AUTO) 78.2 % (40.0-77.0); PLATELET COUNT (AUTO) 293 K/uL (130-400); RED BLOOD CELL COUNT(AUTO) 4.04 MIL/uL (4.00-5.50); RED CELL DISTRIBUTION WIDTH 14.4 % (11.0-15.5); WHITE BLOOD COUNT (AUTO) 12.5 K/uL (4.8-10.8)
[2024-03-16] MEDS: CYANOCOBALAMIN (VITAMIN B-12) 1,000 MCG TABLET PO SCH (10:21)
[2024-03-16 10:34] LABS: CREATININE 1.1 mg/dL (0.5-1.0); POTASSIUM 3.8 mmol/L (3.5-5.1)
[2024-03-16 10:38] LABS: ALBUMIN 2.8 g/dL (3.5-5.0); BILIRUBIN,TOTAL 1.1 mg/dL (0.2-1.0); TOTAL PROTEIN, SERUM 6.8 g/dL (6.0-8.3)
[2024-03-16] MEDS: acetaMINOPHEN 325 MG TAB PO PRN (12:06)
[2024-03-17] VITALS (12 sets, daily range): BP systolic 98–143; BP diastolic 50–76; PULSE 80–94; RESP 17–20; TEMP 98.1–98.7; O2SAT 94–98
[2024-03-17 11:14] LABS: ALBUMIN 2.6 g/dL (3.5-5.0); BILIRUBIN,TOTAL 1.2 mg/dL (0.2-1.0); POTASSIUM 3.8 mmol/L (3.5-5.1); TOTAL PROTEIN, SERUM 6.4 g/dL (6.0-8.3)
[2024-03-17 11:33] LABS: BASOPHILS # (AUTO) 0.05 K/uL (0.00-0.20); BASOPHILS % (AUTO) 0.4 % (0.0-5.0); EOSINOPHILS # (AUTO) 0.32 K/uL (0.00-0.70); EOSINOPHILS % (AUTO) 2.4 % (0.0-8.0); HEMATOCRIT 35.5 % (36-48); IMMATURE GRANULOCYTE ABSOLUTE 0.07 K/uL (0-1); LYMPHOCYTES # (AUTO) 1.6 K/uL (1.0-4.8); MEAN CORPUSCULAR HEMOGLOBIN 27.8 pg (27.0-33.0); MEAN CORPUSCULAR VOLUME 89.6 fL (79-99); MONOCYTES # (AUTO) 1.1 K/uL (0.1-1.0); NEUTROPHILS # (AUTO) 10.1 K/uL (1.8-7.7); NEUTROPHILS % (AUTO) 76.7 % (40.0-77.0); PLATELET COUNT (AUTO) 281 K/uL (130-400); RED BLOOD CELL COUNT(AUTO) 3.96 MIL/uL (4.00-5.50); RED CELL DISTRIBUTION WIDTH 14.5 % (11.0-15.5); WHITE BLOOD COUNT (AUTO) 13.1 K/uL (4.8-10.8)
[2024-03-18] VITALS (12 sets, daily range): BP systolic 125–140; BP diastolic 56–65; PULSE 70–87; RESP 16–19; TEMP 97.8–98.6; O2SAT 94–97
[2024-03-18 04:26] LABS: BASOPHILS # (AUTO) 0.05 K/uL (0.00-0.20); BASOPHILS % (AUTO) 0.7 % (0.0-5.0); EOSINOPHILS # (AUTO) 0.43 K/uL (0.00-0.70); HEMATOCRIT 31.6 % (36-48); IMMATURE GRANULOCYTE ABSOLUTE 0.05 K/uL (0-1); LYMPHOCYTES # (AUTO) 2.5 K/uL (1.0-4.8); LYMPHOCYTES % (AUTO) 35.2 % (21.0-51.0); MEAN CORPUSCULAR HGB CONC 31.3 g/dL (32.0-36.0); MEAN CORPUSCULAR VOLUME 86.3 fL (79-99); MONOCYTES # (AUTO) 0.7 K/uL (0.1-1.0); MONOCYTES % (AUTO) 9.6 % (3.0-13.0); NEUTROPHILS # (AUTO) 3.4 K/uL (1.8-7.7); NEUTROPHILS % (AUTO) 47.8 % (40.0-77.0); PLATELET COUNT (AUTO) 276 K/uL (130-400); RED BLOOD CELL COUNT(AUTO) 3.66 MIL/uL (4.00-5.50); RED CELL DISTRIBUTION WIDTH 14.3 % (11.0-15.5); WHITE BLOOD COUNT (AUTO) 7.1 K/uL (4.8-10.8)
[2024-03-18 04:45] LABS: ALBUMIN 2.6 g/dL (3.5-5.0); BILIRUBIN,TOTAL 1.2 mg/dL (0.2-1.0); CREATININE 1.1 mg/dL (0.5-1.0); POTASSIUM 3.6 mmol/L (3.5-5.1); TOTAL PROTEIN, SERUM 6.3 g/dL (6.0-8.3)
[2024-03-18] MEDS: doCUSate SODIUM 100 MG CAP PO PRN (11:32)
[2024-03-19] VITALS (12 sets, daily range): BP systolic 124–149; BP diastolic 55–77; PULSE 70–81; RESP 17–18; TEMP 97.9–98.5; O2SAT 95–98
[2024-03-19] MEDS: traMADol HCL 50 MG TABLET PO SCH (13:36)
[2024-03-20] VITALS (13 sets, daily range): BP systolic 129–154; BP diastolic 69–89; PULSE 71–99; RESP 18–21; TEMP 97.8–99.3; O2SAT 92–97
[2024-03-20] MEDS: LORATAdine 10 mg 10 MG TABLET PO SCH (08:45)
[2024-03-20] MEDS: duloXETine HCL 30 MG CAP PO SCH (08:45)
[2024-03-20 14:13] LABS: INR 1.01 (0.85-1.15); PROTHROMBIN TIME 10.9 SEC (9.6-11.6)
[2024-03-20 14:14] LABS: PARTIAL THROMBOPLASTIN TIME 30.2 SEC (26.3-35.5)
[2024-03-21] VITALS: BP 110/64; PULSE 90; RESP 20; TEMP 98.1
[2024-03-21 00:09] VITALS: PULSE 70; RESP 18
== END 2024-03-21 00:40 | DRG 689 ==
LOC: EDH 15:22 → EDHIP 19:44 → 4AH 03-14 00:44
PROVIDERS: ADMIT Internal Medicine; ATTEND Internal Medicine
DX: N30.00 Acute cystitis without hematuria (principal); A41.50 Gram-negative sepsis, unspecified; G93.41 Metabolic encephalopathy; G82.20 Paraplegia, unspecified; Z16.12 Extended spectrum beta lactamase (ESBL) resistance; N17.9 Acute kidney failure, unspecified; D63.1 Anemia in chronic kidney disease; E11.22 Type 2 diabetes mellitus with diabetic chronic kidney disease; Z20.822 Contact with and (suspected) exposure to COVID-19; N18.9 Chronic kidney disease, unspecified; I12.9 Hypertensive chronic kidney disease with stage 1 through stage 4 chronic kidney disease, or unspecified chronic kidney disease; E66.01 Morbid (severe) obesity due to excess calories; E86.0 Dehydration; B96.20 Unspecified Escherichia coli [E. coli] as the cause of diseases classified elsewhere; E03.9 Hypothyroidism, unspecified; G89.29 Other chronic pain; I25.10 Atherosclerotic heart disease of native coronary artery without angina pectoris; K59.09 Other constipation; E11.40 Type 2 diabetes mellitus with diabetic neuropathy, unspecified; Z68.39 Body mass index [BMI] 39.0-39.9, adult; Z99.3 Dependence on wheelchair; Z95.1 Presence of aortocoronary bypass graft; Z83.3 Family history of diabetes mellitus; Z74.01 Bed confinement status; Z79.899 Other long term (current) drug therapy
CPT/HCPCS: 36415; 71045; 74018; 76770; 80048; 80053; 81001; 82550; 82948; 83036; 83605; 83735; 83880; 84100; 84145; 84443; 84484; 85025; 85027; 85378; 85610; 85730; 87040; 87086; 87186; 87426; 87804; 93005; 93970; 94640; 94664; 96374; 96375; C1894; G0378; J0692; J1650; J1815; J1885; J2405; J2470; J2543; J7040; J7120; C1750

== ENCOUNTER 2024-07-20 13:19 | Emergency (ER) | payer OTHER ==
[~2024-07-20] VITALS: Ht 162.6 cm; Wt 77.1 kg
[2024-07-20 13:23] VITALS: TEMP 97.5
--- NOTE | 2024-07-20 13:29 | ERN ---
General Chief Complaint: Altered Mental Status Stated Complaint: AMS Time Seen by MD: 13:24 History of Present Illness Initial Comments 74-year-old female, bed-bound, brought in by EMS from home for hallucinations. According to patient's family, she has been hallucinating for the last 24 hours or so. She was seeing people in the road. She was screaming and somebody that has not in the room. Overall she was weaker than usual. She had a vomiting episode earlier today. She is currently a GCS 15 and able to answer all ques tions appropriately. She was recently admitted to [facility] for leg procedure. She denies any fevers, headache, chest pain, diarrhea dysuria or any other concerning symptom. She does have a Guevara catheter. She denies pain. Vital signs on scene: Heart rate 53, blood pressure 90/53. Allergies: Coded Allergies: No Known Drug Allergies (Verified Allergy, Unknown, 02/12/16) Home Meds No Active Prescriptions or Reported Meds Past Medical History Past Medical History: CAD, Diabetes-Type II, Hypothyroid Medical History Other: SPINAL CORD INJURY Past Surgical History: CABG Surgical History Other: SPINAL SX Social History Social History: Smokers, Lives alone Female( History) History: Not Applicable ROS Dictation CONSTITUTIONAL: No chills, no fever, no weakness, no diaphoresis, no malaise. HEAD/FACE: No signs of trauma. EENT: No eye pain, no blurred vision, no tearing, no double vision, no ear pain, no ear discharge, no nose pain, no nasal congestion, no throat pain, no throat swelling, no mouth pain. RESPIRATORY: No cough, no orthopnea, no SOB, no stridor, no wheezing. CARDIOVASCULAR: No chest pain, no edema, no palpitations, no syncope. GASTROINTESTINAL/ABDOMINAL: No abdominal pain, no constipation, no diarrhea, no nausea, no vomiting. GENITOURINARY: No abnormal discharge, no dysuria, no frequent urination, no hematuria. No complaints of pain in the genitals. MUSCULOSKELETAL: No back pain, no gout, no joint pain, no joint swelling, no muscle pain, no muscle stiffness, no neck pain. INTEGUMENTARY: No change in color, no change in hair/nails, no dryness, no lesion, no lumps, no rash. NEUROLOGICAL/PSYCH: No anxiety, not depressed, no emotional problem, no headache, no numbness, no pre-existing deficit, no history of seizures, no tremors, no weakness. HEMATOLOGIC/LYMPHATIC: Not anemic, no history of blood clots, no apparent bleeding, no bruising, glands not swollen. All Systems Negative, Except as Noted. Physical Exam Physical Exam Dictation VITAL SIGNS: Reviewed. GENERAL APPEARANCE: Bedbound, obese, alert and oriented HEAD AND FACE: Non-traumatic. EYES: PERRL, pink conjunctivas, eyelid no trauma, anterior chamber clear. EARS: Pinnas intact and no signs of trauma or erythema. Ear canals clear and no discharge. TMs no erythema. NOSE: No discharge, no bleeding. OROPHARYNX: Mouth normal, teeth no caries, tongue pink. Pharynx clear, no erythema. Tonsils no exudates, no abscesses noted. Mucous membrane moist. NECK: Supple, non-tender, no thyromegaly, no masses, no JVD, no bruits. BREAST: Deferred. CHEST: No tenderness, no crepitus, no paradoxical movement, no retractions. LUNGS: Clear, well-ventilated, symmetric, no rales, no wheezing, no rhonchi, no stridor, good breath sounds bilaterally. HEART: Regular rate, regular rhythm, no murmur, no gallops. VASCULAR: No peripheral edema. ABDOMEN: Soft, positive bowel sounds, nondistended, no guarding, nontender, no rebound, no masses no hepatomegaly, no splenomegaly, no An's sign, no hernias. RECTAL: Deferred. GENITAL: Deferred. NEUROLOGICAL: Normal speech, gross motor function intact, gross sensory fun ction intact. MUSCULOSKELETAL: Bed-bound by baseline. Able to move both legs arms. EXTREMITIES: Nontender, full range of motion. SKIN: Color pink, dry, no turgor, no rash, no lacerations, no abrasions, no contusions. LYMPHATICS: Deferred. Results Laboratory and Microbiology Lab and Micro Result Laboratory Tests Test 07/20/24 13:50 07/20/24 14:56 White Blood Count 7.9 K/uL (4.8-10.8) Red Blood Count 4.26 MIL/uL (4.00-5.50) Hemoglobin 11.0 g/dL (12.0-16.0) L Hematocrit 35.4 % (36-48) L Mean Corpuscular Volume 83.1 fL (79-99) Mean Corpuscular Hemoglobin 25.8 pg (27.0-33.0) L Mean Corpuscular Hemoglobin Concent 31.1 g/dL (32.0-36.0) L Red Cell Distribution Width 16.9 % (11.0-15.5) H Platelet Count 259 K/uL (130-400) Mean Platelet Volume 10.4 fL (7.5-10.5) Immature Granulocyte % (Auto) 1.0 % (0-1) Neutrophils (%) (Auto) 59.3 % (40.0-77.0) Lymphocytes (%) (Auto) 23.6 % (21.0-51.0) Monocytes (%) (Auto) 8.8 % (3.0-13.0) Eosinophils (%) (Auto) 6.7 % (0.0-8.0) Basophils (%) (Auto) 0.6 % (0.0-5.0) Neutrophils # (Auto) 4.7 K/uL (1.8-7.7) Lymphocytes # (Auto) 1.9 K/uL (1.0-4.8) Monocytes # (Auto) 0.7 K/uL (0.1-1.0) Eosinophils # (Auto) 0.53 K/uL (0.00-0.70) Basophils # (Auto) 0.05 K/uL (0.00-0.20) Absolute Immature Granulocyte (auto 0.08 K/uL (0-1) Nucleated Red Blood Cells 0.0 % (0.0-0.19) Sodium Level 141 mmol/L (136-145) Potassium Level 4.2 mmol/L (3.5-5.1) Chloride Level 103 mmol/L (101-111) Carbon Dioxide Level 29 mmol/L (21-32) Blood Urea Nitrogen 8 mg/dL (7-18) Creatinine 0.9 mg/dL (0.5-1.0) Glomerular Filtration Rate Calc 68 mL/min (>90) Random Glucose 71 mg/dL (70-105) Lactic Acid Level 1.2 mmol/L (0.8-2.5) Total Calcium 9.3 mg/dL (8.5-10.1) Total Bilirubin 0.4 mg/dL (0.2-1.0) Direct Bilirubin 0.1 mg/dL (0.0-0.3) Aspartate Amino Transf (AST/SGOT) 15 U/L (10-37) Alanine Aminotransferase (ALT/SGPT) 16 U/L (12-78) Alkaline Phosphatase 114 U/L (50-136) Ammonia 27 umol/L (11-32) Total Creatine Kinase 51 U/L (21-232) # Troponin I High Sensitivity 4 ng/L (4-50) C-Reactive Protein, Quantitative 61.40 mg/L (0.5-3.0) H B-Type Natriuretic Peptide 14 pg/mL (0-100) Total Protein 6.7 g/dL (6.0-8.3) Albumin 2.3 g/dL (3.5-5.0) L Procalcitonin < 0.05 ng/mL (0.05-0.5) L Salicylates Level < 2.8 mg/dL (2.8-20.0) L Acetaminophen Level 2 mcg/mL (10-30) L Urine Color LIGHT-YELLOW (YELLOW) Urine Appearance TURBID (CLEAR) Urine pH 6.0 (5.0-8.0) Urine Specific [place] 1.008 (1.001-1.031) Urine Protein NEGATIVE mg/dL (NEGATIVE) Urine Glucose (UA) NEGATIVE mg/dL (NEGATIVE) Urine Ketones NEGATIVE mg/dL (NEGATIVE) Urine Occult Blood +- (TRACE) (NEGATIVE) H Urine Nitrate NEGATIVE (NEGATIVE) Urine Bilirubin NEGATIVE mg/dL (NEGATIVE) Urine Urobilinogen 0.2 mg/dL (0.2-1.0) Urine Leukocyte Esterase 500 Mackenzie/uL (NEGATIVE) H Urine RBC 2-5 /HPF (0-1) H Urine WBC 6-10 /HPF (0-1) H Urine Other Crystals (Auto) 15 /HPF (None Seen) Urine Bacteria RARE /HPF (None Seen) Urine Yeast MANY /HPF (None Seen) Urine Yeast with Hyphae FEW /HPF (None Seen) Urine Opiates Screen NEGATIVE (NEGATIVE) Urine Barbiturates Screen NEGATIVE (NEGATIVE) Urine Phencyclidine Screen NEGATIVE (NEGATIVE) Urine Amphetamines Screen NEGATIVE (NEGATIVE) Urine Benzodiazepines Screen NEGATIVE (NEGATIVE) Urine Cocaine Screen NEGATIVE (NEGATIVE) Urine Marijuana (THC) Screen NEGATIVE (NEGATIVE) SÁNCHEZ COURTNEY CC: Hallucinations according to family Historian: Patient was able to answer questions, denies any complaints. I did take some history from the family and EMS who reports the patient was hallucinating earlier in the day and yesterday. Limitations by social determinants of health: None Comorbidities: Bed-bound, CAD, chronic Guevara, frequent UTIs, diabetes type 2, hypothyroidism, CABG, AFib, spinal cord injury in 2005. External chart review: Patient was discharged from this facility on 07/01/2024, 19 days ago by [facility]. I reviewed the discharge summary. Patient was admitted for altered mental status that started on antibiotics. She had a negative stroke workup at the time. She states for four days and returned to baseline. She would have acute hypoxic respiratory failure and pulmonary infiltrates of the time. Vital signs: Afebrile, BP 99/58, pulse ox 92% on room air. Otherwise unremarkable EKG: Sinus rhythm rate of 87 with a normal axis good R-wave progression. Low voltage. No obvious ischemia. Independently interpreted by me. Labs (independently ordered and interpreted by me): No leukocytosis no shift no bands. Normocytic anemia hemoglobin of 11. Baseline per patient. Chemistry panel is unremarkable. Liver enzymes are normal. CRP elevated 61. Ammonia stable. CK stable. Troponin stable. Lactic acid normal. Procalcitonin normal. Urinalysis shows leuk esterase 500, some WBCs. Many yeast, few bacteria. Tox screen is unremarkable. CT head (independently ordered and interpreted by me): Unremarkable. Patient received 1 L normal saline and a dose of Rocephin in the ER. Patient was in no signs of SIRS or sepsis. She has been a GCS of 15 with an altered mentation while here. Her workup was relatively unremarkable. She had a white count last time she was here. She also had a pretty large stroke workup. At this point in time I think she is safe for oral antibiotics. We will give her some fluconazole for the yeast as well as cefpodoxime prescription. The Guevara was changed here in the ER. We will DC. REASON: hallucinations ORDERING PHYSICIAN: ILENE BANERJEE DO PROCEDURE: HEAD WO - CT HEAD/BRAIN W/O CONTRAST Exam: NONCONTRAST CT BRAIN REASON: hallucinations. COMPARISON: 06/27/2024 TECHNIQUE: Images are obtained from vertex to the skull base. The exam was performed without IV contrast. FINDINGS: There are generous ventricles and sulci. There is decreased attenuation in the deep central white matter. These findings are consistent with atrophy. There are no acute appearing focal parenchymal lesions. There is no evidence of mass, intracranial hemorrhage or acute stroke. Posterior fossa and brainstem structures appear unremarkable. There are no abnormal fluid collections. Extra cranial soft tissues appear unremarkable as well. IMPRESSION: 1. Atrophy, no acute finding. ED Course Orders Procedure Category Date Status Time Cbc With Differential LAB 07/20/24 Complete 13:24 Salicylate LAB 07/20/24 Complete 13:24 Acetaminophen LAB 07/20/24 Complete 13:24 Urinalysis Profile LAB 07/20/24 Complete 13:24 Chest 1vw RAD 07/20/24 Transmitted 13:24 12 Lead Ekg Tracing- EKG 07/20/24 Complete Technical 13:24 Creatine Kinase, Total LAB 07/20/24 Complete 13:24 Basic Metabolic Panel LAB 07/20/24 Complete 13:24 Ammonia LAB 07/20/24 Complete 13:24 Crp Quantitative LAB 07/20/24 Complete 13:24 Drug Screen Urine LAB 07/20/24 Complete 13:24 Lactic Acid LAB 07/20/24 Complete 13:24 Blood Cult VICKI 07/20/24 In Process 13:24 12 Lead Ekg Tracing- EKG 07/20/24 Logged Technical 13:24 Troponin I High LAB 07/20/24 Complete Sensitivity 13:24 Hepatic Function Panel LAB 07/20/24 Complete 13:24 Ct Head/Brain W/O CT 07/20/24 Resulted Contrast 13:24 B-Type Natriuretic LAB 07/20/24 Complete Peptide 13:33 Procalcitonin LAB 07/20/24 Complete 13:33 0.9%Nacl 1000ml (Ns PHA 07/20/24 Complete 1000ml) 14:00 Culture Urine VICKI 07/20/24 In Process 15:12 Ceftriaxone 1g Vial PHA 07/20/24 Complete (Rocephine 1g Inj) 16:00 Current Medications Medications (Trade) Dose Ordered Sig/Maxi Route PRN Reason Start Time Stop Time Status Last Admin Dose Admin Ceftriaxone Sodium (ROCEphine 1G INJ) 1 gm ONCE ONCE IVPB 07/20/24 16:00 07/20/24 16:01 DC 07/20/24 16:01 Sodium Chloride 1,000 ml @ 0 mls/hr ONCE ONCE IV 07/20/24 14:00 07/20/24 14:01 DC 07/20/24 16:01 Vital Signs Date Time Temp Pulse Resp B/P (MAP) Pulse Ox O2 Delivery O2 Flow Rate FiO2 07/20/24 15:29 86 20 115/61 92 Room Air* 0 21 07/20/24 13:23 97.5 72 18 99/58 92 Room Air DX & DISP Disposition: Discharge Departure Impression: Primary Impression: UTI (urinary tract infection) Condition: Stable Scripts Cefpodoxime Proxetil (Cefpodoxime Proxetil) 200 Mg Tablet 200 MG PO BID for 7 Days, #14 TAB Prov: ILENE BANERJEE DO 07/20/24 Fluconazole (Fluconazole) 200 Mg Tablet 1 TAB PO DAILY for 7 Days, #7 TAB 0 Refills Prov: ILENE BANERJEE DO 07/20/24 Additional Instructions: You have a urinary tract infection. Your vital signs have been stable here in the emergency department. Your lab work (CBC, basic metabolic panel, lactic acid, liver function enzymes, ammonia, creatinine kinase, troponin, CRP, BNP, procalcitonin) is stable. Your toxicologic screen is negative. The urinalysis does show bacteria, white blood cells, and yeast, consistent with an infection. Your Guevara catheter was changed here in the ER. You received a dose of ceftriaxone, which is an antibiotic, here in the ER. I have prescribed cefpodoxime and fluconazole for your infection. Take the cefpodoxime twice per day for seven days. Take the fluconazole once per day for seven days. Please return to the emergency department if you develop fever, more confusion, lethargy, signs of dehydration, significant pain, or any other concerning symptom. Otherwise, I recommend that you follow up with your primary doctor early next week for re-evaluation. Referrals: LUCIANO MONTOYA MD (PCP) ILENE BANERJEE DO Jul 20, 2024 13:29
--- NOTE | 2024-07-20 13:35 | EKG ---
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
[2024-07-20 14:28] LABS: CARBON DIOXIDE 29 mmol/L (21-32); CHLORIDE 103 mmol/L (101-111); CREATININE 0.9 mg/dL (0.5-1.0); GLOMERULAR FILTR. RATE CALC 68 mL/min (>90); GLUCOSE,RANDOM 71 mg/dL (70-105); POTASSIUM 4.2 mmol/L (3.5-5.1); SODIUM SERUM 141 mmol/L (136-145); UREA NITROGEN, BLOOD 8 mg/dL (7-18)
[2024-07-20 14:32] LABS: ACETAMINOPHEN 2 mcg/mL (10-30); ALANINE AMINOTRANSFERASE 16 U/L (12-78); ALBUMIN 2.3 g/dL (3.5-5.0); AMMONIA 27 umol/L (11-32); ASPARTATE AMINOTRANSFERASE 15 U/L (10-37); BILIRUBIN,DIRECT 0.1 mg/dL (0.0-0.3); BILIRUBIN,TOTAL 0.4 mg/dL (0.2-1.0); CREATINE KINASE, TOTAL 51 U/L (21-232); TOTAL PROTEIN, SERUM 6.7 g/dL (6.0-8.3)
[2024-07-20 14:33] LABS: SALICYLATE < 2.8 mg/dL (2.8-20.0)
[2024-07-20 15:08] LABS: APPEARANCE,URINE TURBID (CLEAR); BILIRUBIN,URINE NEGATIVE (NEGATIVE); COLOR,URINE LIGHT-YELLOW (YELLOW); GLUCOSE, URINE (UA) NEGATIVE (NEGATIVE); KETONES,URINE NEGATIVE (NEGATIVE); LEUKOCYTE ESTERASE ,URINE 500 Leu/uL (NEGATIVE); NITRATE,URINE NEGATIVE (NEGATIVE); PROTEIN,URINE NEGATIVE (NEGATIVE); UROBILINOGEN,URINE 0.2 mg/dL (0.2-1.0)
[2024-07-20 15:09] LABS: ADD UA MICROSCOPIC YES
[2024-07-20 15:14] LABS: AMPHET/METH SCREEN,URINE NEGATIVE (NEGATIVE); BARBITURATE SCREEN, URINE NEGATIVE (NEGATIVE); BENZODIAZEPINES SCREEN,URINE NEGATIVE (NEGATIVE); CANNABINOID SCREEN,URINE NEGATIVE (NEGATIVE); COCAINE SCREEN,URINE NEGATIVE (NEGATIVE); OPIATE SCREEN,URINE NEGATIVE (NEGATIVE); PHENCYCLIDINE SCREEN,URINE NEGATIVE (NEGATIVE)
[2024-07-20 15:16] LABS: BACTERIA,URINE RARE /HPF (None Seen); UNCLASSIFIED CRYSTAL 15 /HPF (None Seen); YEAST,URINE BUDDING MANY /HPF (None Seen); YEAST,URINE HYPHAE FEW /HPF (None Seen)
[2024-07-20 15:29] VITALS: BP 115/61; PULSE 86; RESP 20; O2SAT 92
--- NOTE | 2024-07-20 15:43 | HMCIMG ---
Exam: NONCONTRAST CT BRAIN REASON: hallucinations. COMPARISON: 06/27/2024 TECHNIQUE: Images are obtained from vertex to the skull base. The exam was performed without IV contrast. FINDINGS: There are generous ventricles and sulci. There is decreased attenuation in the deep central white matter. These findings are consistent with atrophy. There are no acute appearing focal parenchymal lesions. There is no evidence of mass, intracranial hemorrhage or acute stroke. Posterior fossa and brainstem structures appear unremarkable. There are no abnormal fluid collections. Extra cranial soft tissues appear unremarkable as well. IMPRESSION: 1. Atrophy, no acute finding. CT was performed with one or more following dose reduction techniques: automated exposure control, adjustment of the mA and kv according to patient's size, or use of a iterative reconstruction technique.
[2024-07-20 15:57] LABS: BASOPHILS # (AUTO) 0.05 K/uL (0.00-0.20); BASOPHILS % (AUTO) 0.6 % (0.0-5.0); EOSINOPHILS # (AUTO) 0.53 K/uL (0.00-0.70); EOSINOPHILS % (AUTO) 6.7 % (0.0-8.0); HEMATOCRIT 35.4 % (36-48); IMMATURE GRANULOCYTE ABSOLUTE 0.08 K/uL (0-1); LYMPHOCYTES # (AUTO) 1.9 K/uL (1.0-4.8); LYMPHOCYTES % (AUTO) 23.6 % (21.0-51.0); MEAN CORPUSCULAR HEMOGLOBIN 25.8 pg (27.0-33.0); MEAN CORPUSCULAR HGB CONC 31.1 g/dL (32.0-36.0); MEAN CORPUSCULAR VOLUME 83.1 fL (79-99); MONOCYTES # (AUTO) 0.7 K/uL (0.1-1.0); MONOCYTES % (AUTO) 8.8 % (3.0-13.0); NEUTROPHILS # (AUTO) 4.7 K/uL (1.8-7.7); NEUTROPHILS % (AUTO) 59.3 % (40.0-77.0); PLATELET COUNT (AUTO) 259 K/uL (130-400); RED BLOOD CELL COUNT(AUTO) 4.26 MIL/uL (4.00-5.50); RED CELL DISTRIBUTION WIDTH 16.9 % (11.0-15.5); WHITE BLOOD COUNT (AUTO) 7.9 K/uL (4.8-10.8)
[2024-07-20] MEDS: cefTRIAXone 1G VIAL IVPB ONE (16:01)
[2024-07-20] MEDS: 0.9%NACL 1000ML 1,000 ML IV ONE (16:01)
[2024-07-20] MEDS ORDERED: CEFP200T14 PO (16:13)
[2024-07-20] MEDS ORDERED: FLUC200T96 PO (16:13)
== END 2024-07-20 17:31 | disposition home or self-care (01) ==
LOC: EDH 13:19
DX: N39.0 Urinary tract infection, site not specified (principal); I25.10 Atherosclerotic heart disease of native coronary artery without angina pectoris; E03.9 Hypothyroidism, unspecified; E11.9 Type 2 diabetes mellitus without complications; F17.200 Nicotine dependence, unspecified, uncomplicated; Z74.01 Bed confinement status; Z95.1 Presence of aortocoronary bypass graft
CPT/HCPCS: 99285; 96365; 70450; 81001; 82550; 80076; 84484; 80048; 83880; 80305; 82140; 85025; 87040 ×2; 87086; 83605; 86140; 36415; 93005; 84145; G0481; J7030; J0696

== ENCOUNTER → 2024-10-12 | Outpatient (CLI) | payer OTHER, MEDICARE ==
[~2024-10-12] MED LIST changes: -AEC81 PO; +AMIT25TA9 PO; -AMOX1TAB16 PO; +ASPI-1443 PO; -BACL20TA PO; -CEFD300C3 PO; -CEFU500T67 PO; +CYAN100099 PO; -CYAN250014 PO; -DULO60CA64 PO; +FAMO20TA8 PO; -INSU100V12 SQ; +INSU100V37 SQ; +LACT-441 PO; +LEVO100C5 PO; -LEVO88CA4 PO; +LINA145C PO; -LISI2.5T13 PO; +MAGN400T53 PO; +MECL-226 PO; +ONDA-104 PO; -ONDA-243 PO; -PREG150C47 PO; -ROSU20TA73 PO; +ROSU20TA98 PO; -SEMA1PEN3 SQ; +SEMA2PEN SQ; -SULF1TAB42 PO; +TRIM100T PO; +VIT1CAPS46 PO
[2024-10-12 12:35] LABS: ALBUMIN 2.8 g/dL (3.5-5.0); BILIRUBIN,TOTAL 0.6 mg/dL (0.2-1.0); CREATININE 0.7 mg/dL (0.5-1.0); POTASSIUM 4.2 mmol/L (3.5-5.1); TOTAL PROTEIN, SERUM 6.6 g/dL (6.0-8.3)
== END | disposition home or self-care (01) ==
LOC: LAB 08:45
PROVIDERS: ATTEND Internal Medicine Cardiovascular Disease
DX: E78.2 Mixed hyperlipidemia (principal)
CPT/HCPCS: 36415; 80053; 80061